=== PATIENT | male | born 1940 | race Caucasian/White ===

== ENCOUNTER 2021-12-24 12:18 | Inpatient (IN) | payer MEDICARE ==
[2021-12-24] MEDS ORDERED: Ondansetron ODT 4 MG TAB PO PRN (17:59)
[2021-12-24] MEDS ORDERED: Ampicillin 2 GM VIAL IVPB SCH (18:00)
[2021-12-24] MEDS ORDERED: Dextrose 50% Abboject 50 ML SYRINGE SLOW IVP PRN (18:03)
[2021-12-24] MEDS ORDERED: Acetaminophen 325 MG TAB PO PRN (18:04)
[2021-12-24] MEDS: HumaLOG 300 UNITS/3 ML VIAL SC PRN (18:23)
[2021-12-24] MEDS: Famotidine 20 MG TAB PO SCH (20:14)
[2021-12-24] MEDS: Apixaban 5 MG TAB PO SCH (20:14)
[2021-12-24] MEDS: Sodium Bicarbonate Tab 325 MG TAB PO SCH (20:14)
[2021-12-24] MEDS: cefTRIAXone\\ROCEPHIN 2 GM in Sodium Chloride 0.9% 100 ML IVPB SCH (20:14)
[2021-12-24] MEDS: Atorvastatin Calcium 20 MG TAB PO SCH (20:14)
[2021-12-24] MEDS: Lantus 1000 UNITS/10 ML VIAL SC SCH (20:15)
[2021-12-24] MEDS: Ampicillin 2 GM in Sodium Chloride 0.9% 100 ML IVPB SCH (20:25)
[2021-12-24] MEDS ORDERED: cefTRIAXone\\ROCEPHIN 2 GM VIAL IVPB SCH (21:00)
[2021-12-25] MEDS: Ampicillin 2 GM in Sodium Chloride 0.9% 100 ML IVPB SCH ×6 (00:22→23:57)
[2021-12-25 06:31] LABS: #Basophils 0.1 thou/uL (0.0-0.2); #Eosinphils 0.1 thou/uL (0.0-0.7); #Monocytes 0.6 thou/uL (0.11-0.59); %Basophils 1.4 % (0.0-1.0); %Eosinophils 1.4 % (0.0-10.0); %Lymphocytes 16.9 % (21.0-51.0); %Monocytes 9.9 % (0.0-10.0); %Neutrophils 70.4 % (42.0-75.0); ALT (SGPT) 12 U/L (8-55); AST (SGOT) 17 U/L (5-34); Albumin 2.9 g/dL (3.4-4.8); Alkaline Phosphatase 66 U/L (40-110); Anion Gap 14 mmol/L (10-20); BUN (Urea Nitrogen) 18 mg/dL (8.4-25.7); Bilirubin, Total 0.3 mg/dL (0.2-1.2); Calc. Creatinine Clearance 52 mL/min (70-130); Calcium 8.1 mg/dL (7.8-10.44); Carbon Dioxide 24 mmol/L (23-31); Chloride 106 mmol/L (98-107); Estimated GFR 53; Glucose 96 mg/dL (83-110); Hemoglobin 7.8 g/dL (14.0-18.0); Mean Corpuscular HGB CONC 31.6 g/dL (32.0-36.0); Mean Corpuscular Hemoglobin 28.9 pg (27.0-31.0); Mean Corpuscular Volume 91.5 fl (78.0-98.0); Mean Platelet Volume 6.3 fL (7.4-10.4); Platelet Count 239 thou/uL (130-400); Potassium 3.9 mmol/L (3.5-5.1); Protein, Total 5.9 g/dL (5.8-8.1); RBC Distribution Width 15.6 % (11.5-14.5); Sodium 140 mmol/L (136-145); White Blood Cell (WBC) Count 5.6 thou/uL (4.8-10.8)
[2021-12-25] MEDS: Lantus 1000 UNITS/10 ML VIAL SC SCH ×2 (07:38→20:32)
[2021-12-25] MEDS: Sodium Bicarbonate Tab 325 MG TAB PO SCH ×2 (07:40→20:29)
[2021-12-25] MEDS: Famotidine 20 MG TAB PO SCH ×2 (07:41→20:29)
[2021-12-25] MEDS: Ferrous Sulfate 325 MG TAB PO SCH (07:41)
[2021-12-25] MEDS: Apixaban 5 MG TAB PO SCH ×2 (07:41→20:29)
[2021-12-25] MEDS: Multivitamin W/ Minerals 1 TAB PO SCH (07:41)
[2021-12-25] MEDS: cefTRIAXone\\ROCEPHIN 2 GM in Sodium Chloride 0.9% 100 ML IVPB SCH ×2 (08:26→20:29)
[2021-12-25] MEDS: HumaLOG 300 UNITS/3 ML VIAL SC PRN ×2 (11:45→17:15)
[2021-12-25] MEDS ORDERED: FLU VACC QS2022-23(65YR UP)/PF 240 MCG/0.7 ML SYRINGE IM ONE (17:15)
[2021-12-25] MEDS: Senokot S 8.6-50 MG TAB PO PRN (20:29)
[2021-12-25] MEDS: Atorvastatin Calcium 20 MG TAB PO SCH (20:29)
[2021-12-26] MEDS: Ampicillin 2 GM in Sodium Chloride 0.9% 100 ML IVPB SCH ×3 (05:31→17:37)
[2021-12-26] MEDS: Lantus 1000 UNITS/10 ML VIAL SC SCH ×2 (07:45→20:41)
[2021-12-26] MEDS: Famotidine 20 MG TAB PO SCH ×2 (07:47→20:19)
[2021-12-26] MEDS: Multivitamin W/ Minerals 1 TAB PO SCH (07:47)
[2021-12-26] MEDS: Ferrous Sulfate 325 MG TAB PO SCH (07:48)
[2021-12-26] MEDS: cefTRIAXone\\ROCEPHIN 2 GM in Sodium Chloride 0.9% 100 ML IVPB SCH ×2 (07:48→20:19)
[2021-12-26] MEDS: Sodium Bicarbonate Tab 325 MG TAB PO SCH ×2 (07:48→20:19)
[2021-12-26] MEDS: Apixaban 5 MG TAB PO SCH ×2 (07:48→20:19)
[2021-12-26] MEDS: HumaLOG 300 UNITS/3 ML VIAL SC PRN ×2 (11:47→17:37)
[2021-12-26] MEDS: Bisacodyl 5 MG TAB PO PRN (17:37)
[2021-12-26] MEDS: Atorvastatin Calcium 20 MG TAB PO SCH (20:19)
[2021-12-27] MEDS: Ampicillin 2 GM in Sodium Chloride 0.9% 100 ML IVPB SCH ×5 (00:06→23:42)
[2021-12-27] MEDS: Bisacodyl 5 MG TAB PO PRN (05:55)
[2021-12-27] MEDS: cefTRIAXone\\ROCEPHIN 2 GM in Sodium Chloride 0.9% 100 ML IVPB SCH ×2 (08:55→20:59)
[2021-12-27] MEDS: Multivitamin W/ Minerals 1 TAB PO SCH (08:57)
[2021-12-27] MEDS: Famotidine 20 MG TAB PO SCH ×2 (08:57→21:00)
[2021-12-27] MEDS: Ferrous Sulfate 325 MG TAB PO SCH (08:57)
[2021-12-27] MEDS: Lantus 1000 UNITS/10 ML VIAL SC SCH ×3 (08:58→21:01)
[2021-12-27] MEDS: Apixaban 5 MG TAB PO SCH ×2 (08:58→21:00)
[2021-12-27] MEDS: Sodium Bicarbonate Tab 325 MG TAB PO SCH ×2 (08:59→21:00)
[2021-12-27] MEDS: HumaLOG 300 UNITS/3 ML VIAL SC PRN ×2 (11:59→17:24)
[2021-12-27] MEDS: Atorvastatin Calcium 20 MG TAB PO SCH (21:00)
[2021-12-28 05:54] LABS: Anion Gap 13 mmol/L (10-20); BUN (Urea Nitrogen) 15 mg/dL (8.4-25.7); Calc. Creatinine Clearance 56 mL/min (70-130); Calcium 8.3 mg/dL (7.8-10.44); Carbon Dioxide 25 mmol/L (23-31); Chloride 109 mmol/L (98-107); Estimated GFR 57; Glucose 116 mg/dL (83-110); Potassium 3.9 mmol/L (3.5-5.1); Sodium 143 mmol/L (136-145)
[2021-12-28] MEDS: Ampicillin 2 GM in Sodium Chloride 0.9% 100 ML IVPB SCH ×4 (05:55→21:00)
[2021-12-28] MEDS: Famotidine 20 MG TAB PO SCH ×2 (08:38→21:01)
[2021-12-28] MEDS: Apixaban 5 MG TAB PO SCH ×2 (08:38→21:00)
[2021-12-28] MEDS: Ferrous Sulfate 325 MG TAB PO SCH (08:38)
[2021-12-28] MEDS: Multivitamin W/ Minerals 1 TAB PO SCH (08:38)
[2021-12-28] MEDS: Lantus 1000 UNITS/10 ML VIAL SC SCH ×2 (08:39→21:00)
[2021-12-28] MEDS: Sodium Bicarbonate Tab 325 MG TAB PO SCH ×2 (08:39→21:01)
[2021-12-28] MEDS: cefTRIAXone\\ROCEPHIN 2 GM in Sodium Chloride 0.9% 100 ML IVPB SCH ×2 (08:40→21:42)
[2021-12-28] MEDS: Atorvastatin Calcium 20 MG TAB PO SCH (21:00)
[2021-12-29] MEDS: Ampicillin 2 GM in Sodium Chloride 0.9% 100 ML IVPB SCH ×6 (00:48→20:53)
[2021-12-29] MEDS: Sodium Bicarbonate Tab 325 MG TAB PO SCH ×2 (08:47→20:52)
[2021-12-29] MEDS: Apixaban 5 MG TAB PO SCH ×2 (08:47→20:52)
[2021-12-29] MEDS: Multivitamin W/ Minerals 1 TAB PO SCH (08:47)
[2021-12-29] MEDS: Famotidine 20 MG TAB PO SCH ×2 (08:47→20:52)
[2021-12-29] MEDS: Ferrous Sulfate 325 MG TAB PO SCH (08:48)
[2021-12-29] MEDS: cefTRIAXone\\ROCEPHIN 2 GM in Sodium Chloride 0.9% 100 ML IVPB SCH ×2 (08:53→21:39)
[2021-12-29] MEDS: Lantus 1000 UNITS/10 ML VIAL SC SCH ×2 (08:54→20:53)
[2021-12-29] MEDS ORDERED: Semaglutide (Ozempic) 0.25 MG/0.2 ML Pen.Injctr SC SCH (09:00)
[2021-12-29] MEDS: Semaglutide (Ozempic) 0.25 MG/0.2 ML Pen.Injctr SC SCH (14:50)
[2021-12-29] MEDS: Epoetin (ESRD) 20,000 UNITS/ML IVP SCH (14:50)
[2021-12-29] MEDS: Atorvastatin Calcium 20 MG TAB PO SCH (20:52)
[2021-12-29] MEDS: HumaLOG 300 UNITS/3 ML VIAL SC PRN (20:53)
[2021-12-30] MEDS: Ampicillin 2 GM in Sodium Chloride 0.9% 100 ML IVPB SCH ×6 (01:21→21:05)
[2021-12-30 05:52] LABS: Anion Gap 11 mmol/L (10-20); BUN (Urea Nitrogen) 12 mg/dL (8.4-25.7); Calc. Creatinine Clearance 64 mL/min (70-130); Calcium 8.6 mg/dL (7.8-10.44); Carbon Dioxide 26 mmol/L (23-31); Chloride 108 mmol/L (98-107); Estimated GFR 67; Glucose 132 mg/dL (83-110); Potassium 3.7 mmol/L (3.5-5.1); Sodium 141 mmol/L (136-145)
[2021-12-30] MEDS: cefTRIAXone\\ROCEPHIN 2 GM in Sodium Chloride 0.9% 100 ML IVPB SCH ×2 (07:51→20:27)
[2021-12-30] MEDS: Sodium Bicarbonate Tab 325 MG TAB PO SCH ×2 (08:05→20:28)
[2021-12-30] MEDS: Ferrous Sulfate 325 MG TAB PO SCH (08:05)
[2021-12-30] MEDS: Famotidine 20 MG TAB PO SCH ×2 (08:05→20:28)
[2021-12-30] MEDS: Multivitamin W/ Minerals 1 TAB PO SCH (08:05)
[2021-12-30] MEDS: Apixaban 5 MG TAB PO SCH ×2 (08:06→20:28)
[2021-12-30] MEDS: Lantus 1000 UNITS/10 ML VIAL SC SCH ×2 (08:06→20:29)
[2021-12-30] MEDS: HumaLOG 300 UNITS/3 ML VIAL SC PRN ×2 (11:55→17:42)
[2021-12-30 15:15] LABS: Hemoglobin A1c 6.5 % (4.0-6.0)
[2021-12-30] MEDS: Atorvastatin Calcium 20 MG TAB PO SCH (20:28)
[2021-12-31] MEDS: Ampicillin 2 GM in Sodium Chloride 0.9% 100 ML IVPB SCH ×6 (01:06→21:51)
[2021-12-31] MEDS: cefTRIAXone\\ROCEPHIN 2 GM in Sodium Chloride 0.9% 100 ML IVPB SCH ×2 (08:07→21:13)
[2021-12-31] MEDS: Sodium Bicarbonate Tab 325 MG TAB PO SCH ×2 (08:13→21:13)
[2021-12-31] MEDS: Apixaban 5 MG TAB PO SCH ×2 (08:13→21:12)
[2021-12-31] MEDS: Lantus 1000 UNITS/10 ML VIAL SC SCH ×2 (08:14→21:13)
[2021-12-31] MEDS: Ferrous Sulfate 325 MG TAB PO SCH (08:14)
[2021-12-31] MEDS: Famotidine 20 MG TAB PO SCH ×2 (08:14→21:12)
[2021-12-31] MEDS: Multivitamin W/ Minerals 1 TAB PO SCH (08:14)
[2021-12-31] MEDS: Senokot S 8.6-50 MG TAB PO PRN (16:38)
[2021-12-31] MEDS: HumaLOG 300 UNITS/3 ML VIAL SC PRN (16:41)
[2021-12-31] MEDS: Atorvastatin Calcium 20 MG TAB PO SCH (21:13)
[2022-01-01] MEDS: Ampicillin 2 GM in Sodium Chloride 0.9% 100 ML IVPB SCH ×6 (00:47→20:37)
[2022-01-01] MEDS: Multivitamin W/ Minerals 1 TAB PO SCH (07:56)
[2022-01-01] MEDS: Ferrous Sulfate 325 MG TAB PO SCH (07:56)
[2022-01-01] MEDS: Sodium Bicarbonate Tab 325 MG TAB PO SCH ×2 (07:56→20:34)
[2022-01-01] MEDS: Apixaban 5 MG TAB PO SCH ×2 (07:56→20:37)
[2022-01-01] MEDS: Famotidine 20 MG TAB PO SCH ×2 (07:56→20:35)
[2022-01-01] MEDS: Lantus 1000 UNITS/10 ML VIAL SC SCH ×2 (07:57→20:38)
[2022-01-01] MEDS: cefTRIAXone\\ROCEPHIN 2 GM in Sodium Chloride 0.9% 100 ML IVPB SCH ×2 (08:45→21:21)
[2022-01-01 09:17] LABS: #Basophils 0.1 thou/uL (0.0-0.2); #Eosinphils 0.1 thou/uL (0.0-0.7); #Lymphocytes 0.7 thou/uL (1.20-3.40); #Monocytes 0.4 thou/uL (0.11-0.59); #Neutrophils 3.1 thou/uL (1.40-6.50); %Basophils 1.5 % (0.0-1.0); %Eosinophils 1.2 % (0.0-10.0); %Lymphocytes 16.9 % (21.0-51.0); %Neutrophils 71.4 % (42.0-75.0); Hemoglobin 8.2 g/dL (14.0-18.0); Mean Corpuscular HGB CONC 30.2 g/dL (32.0-36.0); Mean Corpuscular Hemoglobin 28.6 pg (27.0-31.0); Mean Corpuscular Volume 94.8 fl (78.0-98.0); Mean Platelet Volume 5.9 fL (7.4-10.4); Platelet Count 202 thou/uL (130-400); RBC Distribution Width 17.6 % (11.5-14.5); Red Blood Cell (RBC) Count 2.85 mill/uL (4.70-6.10); White Blood Cell (WBC) Count 4.4 thou/uL (4.8-10.8)
[2022-01-01 09:27] LABS: Albumin 3.1 g/dL (3.4-4.8); Anion Gap 14 mmol/L (10-20); BUN (Urea Nitrogen) 11 mg/dL (8.4-25.7); Bilirubin, Total 0.3 mg/dL (0.2-1.2); Calc. Creatinine Clearance 55 mL/min (70-130); Calcium 8.4 mg/dL (7.8-10.44); Carbon Dioxide 23 mmol/L (23-31); Chloride 107 mmol/L (98-107); Estimated GFR 55; Glucose 145 mg/dL (83-110); Potassium 4.1 mmol/L (3.5-5.1); Protein, Total 6.4 g/dL (5.8-8.1); Sodium 140 mmol/L (136-145)
[2022-01-01 09:28] LABS: ALT (SGPT) 8 U/L (8-55); AST (SGOT) 13 U/L (5-34); Alkaline Phosphatase 74 U/L (40-110); CRP (Inflammatory) 1.52 mg/dL (= or < 0.5); Globulin 3.3 g/dL (2.4-3.5)
[2022-01-01] MEDS: Atorvastatin Calcium 20 MG TAB PO SCH (20:36)
[2022-01-01] MEDS: Senokot S 8.6-50 MG TAB PO PRN (20:36)
[2022-01-02] MEDS: Ampicillin 2 GM in Sodium Chloride 0.9% 100 ML IVPB SCH ×6 (00:28→20:26)
[2022-01-02] MEDS: Sodium Bicarbonate Tab 325 MG TAB PO SCH ×2 (08:52→20:25)
[2022-01-02] MEDS: Multivitamin W/ Minerals 1 TAB PO SCH (08:52)
[2022-01-02] MEDS: Apixaban 5 MG TAB PO SCH ×2 (08:52→20:26)
[2022-01-02] MEDS: Famotidine 20 MG TAB PO SCH ×2 (08:52→20:26)
[2022-01-02] MEDS: Senokot S 8.6-50 MG TAB PO PRN (08:53)
[2022-01-02] MEDS: Lantus 1000 UNITS/10 ML VIAL SC SCH (08:56)
[2022-01-02] MEDS: Ferrous Sulfate 325 MG TAB PO SCH (08:58)
[2022-01-02] MEDS: cefTRIAXone\\ROCEPHIN 2 GM in Sodium Chloride 0.9% 100 ML IVPB SCH ×2 (09:31→20:52)
[2022-01-02] MEDS: HumaLOG 300 UNITS/3 ML VIAL SC PRN (17:01)
[2022-01-02] MEDS: Atorvastatin Calcium 20 MG TAB PO SCH (20:25)
[2022-01-03] MEDS: Ampicillin 2 GM in Sodium Chloride 0.9% 100 ML IVPB SCH ×6 (00:28→20:18)
[2022-01-03] MEDS: Ferrous Sulfate 325 MG TAB PO SCH (08:25)
[2022-01-03] MEDS: Multivitamin W/ Minerals 1 TAB PO SCH (08:25)
[2022-01-03] MEDS: Apixaban 5 MG TAB PO SCH ×2 (08:25→20:19)
[2022-01-03] MEDS: Famotidine 20 MG TAB PO SCH ×2 (08:26→20:19)
[2022-01-03] MEDS: Sodium Bicarbonate Tab 325 MG TAB PO SCH ×2 (08:26→20:19)
[2022-01-03] MEDS: Lantus 1000 UNITS/10 ML VIAL SC SCH (08:29)
[2022-01-03] MEDS: cefTRIAXone\\ROCEPHIN 2 GM in Sodium Chloride 0.9% 100 ML IVPB SCH ×2 (09:01→20:19)
[2022-01-03] MEDS: Atorvastatin Calcium 20 MG TAB PO SCH (20:19)
[2022-01-04] MEDS: Ampicillin 2 GM in Sodium Chloride 0.9% 100 ML IVPB SCH ×6 (01:26→20:15)
[2022-01-04] MEDS: Ferrous Sulfate 325 MG TAB PO SCH (08:41)
[2022-01-04] MEDS: Sodium Bicarbonate Tab 325 MG TAB PO SCH ×2 (08:42→20:12)
[2022-01-04] MEDS: Apixaban 5 MG TAB PO SCH ×2 (08:42→20:12)
[2022-01-04] MEDS: Famotidine 20 MG TAB PO SCH ×2 (08:42→20:13)
[2022-01-04] MEDS: Multivitamin W/ Minerals 1 TAB PO SCH (08:42)
[2022-01-04] MEDS: Lantus 1000 UNITS/10 ML VIAL SC SCH (09:06)
[2022-01-04] MEDS: cefTRIAXone\\ROCEPHIN 2 GM in Sodium Chloride 0.9% 100 ML IVPB SCH ×2 (09:19→20:15)
[2022-01-04] MEDS: Atorvastatin Calcium 20 MG TAB PO SCH (20:12)
[2022-01-05] MEDS: Ampicillin 2 GM in Sodium Chloride 0.9% 100 ML IVPB SCH ×6 (01:31→20:23)
[2022-01-05] MEDS: Ferrous Sulfate 325 MG TAB PO SCH (08:25)
[2022-01-05] MEDS: Multivitamin W/ Minerals 1 TAB PO SCH (08:26)
[2022-01-05] MEDS: Sodium Bicarbonate Tab 325 MG TAB PO SCH ×2 (08:26→20:23)
[2022-01-05] MEDS: Famotidine 20 MG TAB PO SCH ×2 (08:26→20:23)
[2022-01-05] MEDS: Apixaban 5 MG TAB PO SCH ×2 (08:27→20:23)
[2022-01-05] MEDS: Lantus 1000 UNITS/10 ML VIAL SC SCH (08:28)
[2022-01-05] MEDS: cefTRIAXone\\ROCEPHIN 2 GM in Sodium Chloride 0.9% 100 ML IVPB SCH ×2 (09:21→20:23)
[2022-01-05] MEDS: Semaglutide (Ozempic) 0.25 MG/0.2 ML Pen.Injctr SC SCH (10:00)
[2022-01-05] MEDS: Epoetin (ESRD) 20,000 UNITS/ML IVP SCH (15:58)
[2022-01-05] MEDS: HumaLOG 300 UNITS/3 ML VIAL SC PRN ×2 (16:56→21:07)
[2022-01-05] MEDS: Atorvastatin Calcium 20 MG TAB PO SCH (20:23)
[2022-01-06] MEDS: Ampicillin 2 GM in Sodium Chloride 0.9% 100 ML IVPB SCH ×6 (01:54→20:18)
[2022-01-06 06:48] LABS: #Basophils 0.1 thou/uL (0.0-0.2); #Eosinphils 0.1 thou/uL (0.0-0.7); #Lymphocytes 0.8 thou/uL (1.20-3.40); #Monocytes 0.4 thou/uL (0.11-0.59); #Neutrophils 2.1 thou/uL (1.40-6.50); %Basophils 2.1 % (0.0-1.0); %Eosinophils 2.9 % (0.0-10.0); %Lymphocytes 23.6 % (21.0-51.0); %Monocytes 12.7 % (0.0-10.0); %Neutrophils 58.7 % (42.0-75.0); Hemoglobin 8.6 g/dL (14.0-18.0); Mean Corpuscular HGB CONC 31.9 g/dL (32.0-36.0); Mean Corpuscular Hemoglobin 29.8 pg (27.0-31.0); Mean Corpuscular Volume 93.5 fl (78.0-98.0); Mean Platelet Volume 5.4 fL (7.4-10.4); Platelet Count 216 10x3/uL (130-400); RBC Distribution Width 17.3 % (11.5-14.5); Red Blood Cell (RBC) Count 2.89 mill/uL (4.70-6.10); White Blood Cell (WBC) Count 3.5 10x3/uL (4.8-10.8)
[2022-01-06 07:03] LABS: Anion Gap 12 mmol/L (10-20); BUN (Urea Nitrogen) 12 mg/dL (8.4-25.7); Calc. Creatinine Clearance 53 mL/min (70-130); Calcium 8.4 mg/dL (7.8-10.44); Carbon Dioxide 24 mmol/L (23-31); Chloride 109 mmol/L (98-107); Estimated GFR 53; Glucose 122 mg/dL (83-110); Potassium 3.6 mmol/L (3.5-5.1); Sodium 141 mmol/L (136-145)
[2022-01-06] MEDS: cefTRIAXone\\ROCEPHIN 2 GM in Sodium Chloride 0.9% 100 ML IVPB SCH ×2 (07:48→20:18)
[2022-01-06] MEDS: Apixaban 5 MG TAB PO SCH ×2 (08:03→20:17)
[2022-01-06] MEDS: Famotidine 20 MG TAB PO SCH ×2 (08:04→20:17)
[2022-01-06] MEDS: Ferrous Sulfate 325 MG TAB PO SCH (08:04)
[2022-01-06] MEDS: Sodium Bicarbonate Tab 325 MG TAB PO SCH ×2 (08:04→20:17)
[2022-01-06] MEDS: Multivitamin W/ Minerals 1 TAB PO SCH (08:04)
[2022-01-06] MEDS: Empagliflozin 10 MG TAB PO SCH (08:04)
[2022-01-06] MEDS: Lantus 1000 UNITS/10 ML VIAL SC SCH (08:06)
[2022-01-06] MEDS: HumaLOG 300 UNITS/3 ML VIAL SC PRN (11:37)
[2022-01-06] MEDS: Atorvastatin Calcium 20 MG TAB PO SCH (20:17)
[2022-01-07] MEDS: Ampicillin 2 GM in Sodium Chloride 0.9% 100 ML IVPB SCH ×6 (01:49→20:55)
[2022-01-07] MEDS: cefTRIAXone\\ROCEPHIN 2 GM in Sodium Chloride 0.9% 100 ML IVPB SCH ×2 (07:50→20:55)
[2022-01-07] MEDS: Lantus 1000 UNITS/10 ML VIAL SC SCH (07:58)
[2022-01-07] MEDS: Empagliflozin 10 MG TAB PO SCH (08:01)
[2022-01-07] MEDS: Sodium Bicarbonate Tab 325 MG TAB PO SCH ×2 (08:01→20:54)
[2022-01-07] MEDS: Famotidine 20 MG TAB PO SCH ×2 (08:01→20:55)
[2022-01-07] MEDS: Ferrous Sulfate 325 MG TAB PO SCH (08:01)
[2022-01-07] MEDS: Multivitamin W/ Minerals 1 TAB PO SCH (08:01)
[2022-01-07] MEDS: Apixaban 5 MG TAB PO SCH ×2 (08:02→20:55)
[2022-01-07] MEDS: HumaLOG 300 UNITS/3 ML VIAL SC PRN ×2 (11:32→20:53)
[2022-01-07] MEDS: Atorvastatin Calcium 20 MG TAB PO SCH (20:55)
[2022-01-08] MEDS: Ampicillin 2 GM in Sodium Chloride 0.9% 100 ML IVPB SCH ×6 (01:04→20:47)
[2022-01-08 06:03] LABS: ALT (SGPT) 7 U/L (8-55); AST (SGOT) 13 U/L (5-34); Albumin 3.2 g/dL (3.4-4.8); Alkaline Phosphatase 77 U/L (40-110); Anion Gap 13 mmol/L (10-20); BUN (Urea Nitrogen) 14 mg/dL (8.4-25.7); Bilirubin, Total 0.3 mg/dL (0.2-1.2); Calc. Creatinine Clearance 54 mL/min (70-130); Calcium 8.5 mg/dL (7.8-10.44); Carbon Dioxide 24 mmol/L (23-31); Chloride 109 mmol/L (98-107); Estimated GFR 54; Globulin 2.8 g/dL (2.4-3.5); Potassium 3.6 mmol/L (3.5-5.1)
[2022-01-08 06:37] LABS: #Basophils 0.1 thou/uL (0.0-0.2); #Eosinphils 0.1 thou/uL (0.0-0.7); #Lymphocytes 0.7 thou/uL (1.20-3.40); #Monocytes 0.4 thou/uL (0.11-0.59); #Neutrophils 3.6 thou/uL (1.40-6.50); %Basophils 1.9 % (0.0-1.0); %Lymphocytes 14.3 % (21.0-51.0); %Monocytes 7.4 % (0.0-10.0); %Neutrophils 74.4 % (42.0-75.0); Hemoglobin 8.5 g/dL (14.0-18.0); Mean Corpuscular HGB CONC 30.9 g/dL (32.0-36.0); Mean Corpuscular Hemoglobin 29.4 pg (27.0-31.0); Mean Platelet Volume 5.9 fL (7.4-10.4); Platelet Count 210 10x3/uL (130-400); RBC Distribution Width 17.6 % (11.5-14.5); White Blood Cell (WBC) Count 4.9 10x3/uL (4.8-10.8)
[2022-01-08 06:50] LABS: Glucose 110 mg/dL (83-110); Sodium 142 mmol/L (136-145)
[2022-01-08 07:05] LABS: CRP (Inflammatory) 1.25 mg/dL (= or < 0.5)
[2022-01-08] MEDS: Senokot S 8.6-50 MG TAB PO PRN ×2 (07:43→16:52)
[2022-01-08] MEDS: Ferrous Sulfate 325 MG TAB PO SCH (07:43)
[2022-01-08] MEDS: Famotidine 20 MG TAB PO SCH ×2 (07:44→20:09)
[2022-01-08] MEDS: Empagliflozin 10 MG TAB PO SCH (07:44)
[2022-01-08] MEDS: Lantus 1000 UNITS/10 ML VIAL SC SCH (07:44)
[2022-01-08] MEDS: Apixaban 5 MG TAB PO SCH ×2 (07:44→20:09)
[2022-01-08] MEDS: Multivitamin W/ Minerals 1 TAB PO SCH (07:44)
[2022-01-08] MEDS: Sodium Bicarbonate Tab 325 MG TAB PO SCH ×2 (07:44→20:09)
[2022-01-08] MEDS: Losartan 25 MG TAB PO SCH (07:44)
[2022-01-08] MEDS: cefTRIAXone\\ROCEPHIN 2 GM in Sodium Chloride 0.9% 100 ML IVPB SCH ×2 (08:33→20:07)
[2022-01-08] MEDS: Atorvastatin Calcium 20 MG TAB PO SCH (20:09)
[2022-01-08] MEDS: HumaLOG 300 UNITS/3 ML VIAL SC PRN (20:16)
[2022-01-09] MEDS: Ampicillin 2 GM in Sodium Chloride 0.9% 100 ML IVPB SCH ×6 (00:51→21:39)
[2022-01-09] MEDS: Sodium Bicarbonate Tab 325 MG TAB PO SCH ×2 (07:56→20:06)
[2022-01-09] MEDS: Losartan 25 MG TAB PO SCH (07:57)
[2022-01-09] MEDS: Famotidine 20 MG TAB PO SCH ×2 (07:57→20:06)
[2022-01-09] MEDS: Multivitamin W/ Minerals 1 TAB PO SCH (07:57)
[2022-01-09] MEDS: Empagliflozin 10 MG TAB PO SCH (07:58)
[2022-01-09] MEDS: Lantus 1000 UNITS/10 ML VIAL SC SCH (07:58)
[2022-01-09] MEDS: Ferrous Sulfate 325 MG TAB PO SCH (07:58)
[2022-01-09] MEDS: Apixaban 5 MG TAB PO SCH ×2 (07:58→20:06)
[2022-01-09] MEDS: Senokot S 8.6-50 MG TAB PO PRN ×2 (08:02→17:57)
[2022-01-09] MEDS: cefTRIAXone\\ROCEPHIN 2 GM in Sodium Chloride 0.9% 100 ML IVPB SCH ×2 (08:47→20:05)
[2022-01-09] MEDS: HumaLOG 300 UNITS/3 ML VIAL SC PRN ×3 (11:38→20:23)
[2022-01-09] MEDS: Atorvastatin Calcium 20 MG TAB PO SCH (20:06)
[2022-01-10] MEDS: Ampicillin 2 GM in Sodium Chloride 0.9% 100 ML IVPB SCH ×6 (01:23→21:47)
[2022-01-10] MEDS: cefTRIAXone\\ROCEPHIN 2 GM in Sodium Chloride 0.9% 100 ML IVPB SCH ×2 (08:04→21:16)
[2022-01-10] MEDS: Ferrous Sulfate 325 MG TAB PO SCH (08:05)
[2022-01-10] MEDS: Senokot S 8.6-50 MG TAB PO PRN (08:50)
[2022-01-10] MEDS: Losartan 25 MG TAB PO SCH (08:59)
[2022-01-10] MEDS: Multivitamin W/ Minerals 1 TAB PO SCH (08:59)
[2022-01-10] MEDS: Famotidine 20 MG TAB PO SCH ×2 (09:00→21:17)
[2022-01-10] MEDS: Apixaban 5 MG TAB PO SCH ×2 (09:00→21:17)
[2022-01-10] MEDS: Lantus 1000 UNITS/10 ML VIAL SC SCH (09:00)
[2022-01-10] MEDS: Sodium Bicarbonate Tab 325 MG TAB PO SCH ×2 (09:10→21:16)
[2022-01-10] MEDS ORDERED: Empagliflozin 10 MG TAB PO SCH (12:45)
[2022-01-10] MEDS: Empagliflozin 10 MG TAB PO SCH (13:05)
[2022-01-10] MEDS: HumaLOG 300 UNITS/3 ML VIAL SC PRN (17:15)
[2022-01-10] MEDS: Atorvastatin Calcium 20 MG TAB PO SCH (21:17)
[2022-01-11] MEDS: Ampicillin 2 GM in Sodium Chloride 0.9% 100 ML IVPB SCH ×6 (00:54→20:43)
[2022-01-11] MEDS: cefTRIAXone\\ROCEPHIN 2 GM in Sodium Chloride 0.9% 100 ML IVPB SCH ×2 (08:08→20:43)
[2022-01-11] MEDS: Sodium Bicarbonate Tab 325 MG TAB PO SCH ×2 (08:14→20:42)
[2022-01-11] MEDS: Multivitamin W/ Minerals 1 TAB PO SCH (08:14)
[2022-01-11] MEDS: Ferrous Sulfate 325 MG TAB PO SCH (08:14)
[2022-01-11] MEDS: Famotidine 20 MG TAB PO SCH ×2 (08:14→20:42)
[2022-01-11] MEDS: Apixaban 5 MG TAB PO SCH ×2 (08:15→20:42)
[2022-01-11] MEDS: Empagliflozin 10 MG TAB PO SCH (08:15)
[2022-01-11] MEDS: Losartan 25 MG TAB PO SCH (08:15)
[2022-01-11] MEDS: Lantus 1000 UNITS/10 ML VIAL SC SCH (08:16)
[2022-01-11] MEDS: HumaLOG 300 UNITS/3 ML VIAL SC PRN ×2 (11:38→16:59)
[2022-01-11] MEDS: Atorvastatin Calcium 20 MG TAB PO SCH (20:42)
[2022-01-12] MEDS: Ampicillin 2 GM in Sodium Chloride 0.9% 100 ML IVPB SCH ×6 (00:28→21:13)
[2022-01-12] MEDS: Famotidine 20 MG TAB PO SCH ×2 (08:14→20:30)
[2022-01-12] MEDS: Ferrous Sulfate 325 MG TAB PO SCH (08:14)
[2022-01-12] MEDS: Sodium Bicarbonate Tab 325 MG TAB PO SCH ×2 (08:14→20:41)
[2022-01-12] MEDS: Apixaban 5 MG TAB PO SCH ×2 (08:14→20:29)
[2022-01-12] MEDS: Losartan 25 MG TAB PO SCH (08:14)
[2022-01-12] MEDS: Multivitamin W/ Minerals 1 TAB PO SCH (08:14)
[2022-01-12] MEDS: Empagliflozin 10 MG TAB PO SCH (08:15)
[2022-01-12] MEDS: Semaglutide (Ozempic) 0.25 MG/0.2 ML Pen.Injctr SC SCH (08:19)
[2022-01-12] MEDS: Senokot S 8.6-50 MG TAB PO PRN ×2 (08:19→20:30)
[2022-01-12] MEDS: Lantus 1000 UNITS/10 ML VIAL SC SCH (08:38)
[2022-01-12] MEDS: cefTRIAXone\\ROCEPHIN 2 GM in Sodium Chloride 0.9% 100 ML IVPB SCH ×2 (09:00→20:30)
[2022-01-12] MEDS: HumaLOG 300 UNITS/3 ML VIAL SC PRN ×2 (10:47→19:25)
[2022-01-12] MEDS: Epoetin (ESRD) 20,000 UNITS/ML IVP SCH (15:23)
[2022-01-12] MEDS: Atorvastatin Calcium 20 MG TAB PO SCH (20:29)
[2022-01-13] MEDS: Ampicillin 2 GM in Sodium Chloride 0.9% 100 ML IVPB SCH ×6 (01:15→21:00)
[2022-01-13] MEDS: Multivitamin W/ Minerals 1 TAB PO SCH (08:10)
[2022-01-13] MEDS: Losartan 25 MG TAB PO SCH (08:10)
[2022-01-13] MEDS: Empagliflozin 10 MG TAB PO SCH (08:10)
[2022-01-13] MEDS: Sodium Bicarbonate Tab 325 MG TAB PO SCH ×2 (08:10→20:17)
[2022-01-13] MEDS: Famotidine 20 MG TAB PO SCH ×2 (08:10→20:16)
[2022-01-13] MEDS: Apixaban 5 MG TAB PO SCH ×2 (08:10→20:16)
[2022-01-13] MEDS: Ferrous Sulfate 325 MG TAB PO SCH (08:10)
[2022-01-13] MEDS: Lantus 1000 UNITS/10 ML VIAL SC SCH (08:11)
[2022-01-13] MEDS: cefTRIAXone\\ROCEPHIN 2 GM in Sodium Chloride 0.9% 100 ML IVPB SCH ×2 (08:46→20:16)
[2022-01-13] MEDS: Atorvastatin Calcium 20 MG TAB PO SCH (20:16)
[2022-01-13] MEDS: Senokot S 8.6-50 MG TAB PO PRN (20:19)
[2022-01-14] MEDS: Ampicillin 2 GM in Sodium Chloride 0.9% 100 ML IVPB SCH ×6 (01:07→21:34)
[2022-01-14] MEDS: Losartan 25 MG TAB PO SCH (07:54)
[2022-01-14] MEDS: Senokot S 8.6-50 MG TAB PO PRN ×2 (07:55→21:04)
[2022-01-14] MEDS: Sodium Bicarbonate Tab 325 MG TAB PO SCH ×2 (07:55→20:43)
[2022-01-14] MEDS: Empagliflozin 10 MG TAB PO SCH (07:55)
[2022-01-14] MEDS: Multivitamin W/ Minerals 1 TAB PO SCH (07:55)
[2022-01-14] MEDS: Ferrous Sulfate 325 MG TAB PO SCH (07:55)
[2022-01-14] MEDS: Famotidine 20 MG TAB PO SCH ×2 (07:55→20:43)
[2022-01-14] MEDS: Apixaban 5 MG TAB PO SCH ×2 (07:56→20:43)
[2022-01-14] MEDS: Lantus 1000 UNITS/10 ML VIAL SC SCH (07:57)
[2022-01-14] MEDS: cefTRIAXone\\ROCEPHIN 2 GM in Sodium Chloride 0.9% 100 ML IVPB SCH ×2 (08:39→20:43)
[2022-01-14] MEDS: HumaLOG 300 UNITS/3 ML VIAL SC PRN (17:21)
[2022-01-14] MEDS ORDERED: Polyethylene Glycol 3350 17 GM Packet PO PRN (18:37)
[2022-01-14] MEDS: Atorvastatin Calcium 20 MG TAB PO SCH (20:43)
[2022-01-15] MEDS: Ampicillin 2 GM in Sodium Chloride 0.9% 100 ML IVPB SCH ×6 (01:12→20:53)
[2022-01-15 06:00] LABS: #Basophils 0.1 thou/uL (0.0-0.2); #Eosinphils 0.1 thou/uL (0.0-0.7); #Monocytes 0.5 thou/uL (0.11-0.59); #Neutrophils 2.1 thou/uL (1.40-6.50); %Basophils 2.4 % (0.0-1.0); %Eosinophils 3.6 % (0.0-10.0); %Lymphocytes 26.1 % (21.0-51.0); %Monocytes 13.5 % (0.0-10.0); %Neutrophils 54.5 % (42.0-75.0); Hemoglobin 8.3 g/dL (14.0-18.0); Mean Corpuscular HGB CONC 30.5 g/dL (32.0-36.0); Mean Corpuscular Hemoglobin 29.5 pg (27.0-31.0); Mean Corpuscular Volume 96.6 fl (78.0-98.0); Mean Platelet Volume 6.3 fL (7.4-10.4); Platelet Count 199 10x3/uL (130-400); RBC Distribution Width 18.2 % (11.5-14.5); Red Blood Cell (RBC) Count 2.83 mill/uL (4.70-6.10); White Blood Cell (WBC) Count 3.8 10x3/uL (4.8-10.8)
[2022-01-15 06:16] LABS: ALT (SGPT) 6 U/L (8-55); AST (SGOT) 13 U/L (5-34); Albumin 3.3 g/dL (3.4-4.8); Alkaline Phosphatase 71 U/L (40-110); Anion Gap 14 mmol/L (10-20); BUN (Urea Nitrogen) 23 mg/dL (8.4-25.7); Bilirubin, Total 0.3 mg/dL (0.2-1.2); Calc. Creatinine Clearance 47 mL/min (70-130); Calcium 8.5 mg/dL (7.8-10.44); Carbon Dioxide 23 mmol/L (23-31); Chloride 111 mmol/L (98-107); Estimated GFR 47; Globulin 2.5 g/dL (2.4-3.5); Glucose 98 mg/dL (83-110); Potassium 3.6 mmol/L (3.5-5.1); Protein, Total 5.8 g/dL (5.8-8.1); Sodium 144 mmol/L (136-145)
[2022-01-15] MEDS: Lantus 1000 UNITS/10 ML VIAL SC SCH (08:36)
[2022-01-15] MEDS: Apixaban 5 MG TAB PO SCH ×2 (08:37→20:54)
[2022-01-15] MEDS: Sodium Bicarbonate Tab 325 MG TAB PO SCH ×2 (08:37→20:54)
[2022-01-15] MEDS: Multivitamin W/ Minerals 1 TAB PO SCH (08:37)
[2022-01-15] MEDS: Famotidine 20 MG TAB PO SCH (08:37)
[2022-01-15] MEDS: Losartan 25 MG TAB PO SCH (08:37)
[2022-01-15] MEDS: Ferrous Sulfate 325 MG TAB PO SCH (08:37)
[2022-01-15] MEDS: Empagliflozin 10 MG TAB PO SCH (08:37)
[2022-01-15] MEDS ORDERED: Sodium Chloride 0.9% 1,000 ML IV SCH (09:15)
[2022-01-15] MEDS: cefTRIAXone\\ROCEPHIN 2 GM in Sodium Chloride 0.9% 100 ML IVPB SCH ×2 (09:15→20:55)
[2022-01-15] MEDS: HumaLOG 300 UNITS/3 ML VIAL SC PRN (16:32)
[2022-01-15] MEDS: Atorvastatin Calcium 20 MG TAB PO SCH (20:54)
[2022-01-15] MEDS: Senokot S 8.6-50 MG TAB PO PRN (20:59)
[2022-01-16] MEDS: Ampicillin 2 GM in Sodium Chloride 0.9% 100 ML IVPB SCH ×6 (01:00→21:55)
[2022-01-16] MEDS: Lantus 1000 UNITS/10 ML VIAL SC SCH (08:30)
[2022-01-16] MEDS: Sodium Bicarbonate Tab 325 MG TAB PO SCH ×2 (08:33→20:44)
[2022-01-16] MEDS: Multivitamin W/ Minerals 1 TAB PO SCH (08:33)
[2022-01-16] MEDS: Apixaban 5 MG TAB PO SCH ×2 (08:33→20:43)
[2022-01-16] MEDS: Famotidine 20 MG TAB PO SCH (08:34)
[2022-01-16] MEDS: Ferrous Sulfate 325 MG TAB PO SCH (08:34)
[2022-01-16] MEDS: Losartan 25 MG TAB PO SCH (08:34)
[2022-01-16] MEDS: Empagliflozin 10 MG TAB PO SCH (08:34)
[2022-01-16] MEDS: cefTRIAXone\\ROCEPHIN 2 GM in Sodium Chloride 0.9% 100 ML IVPB SCH ×2 (09:07→20:43)
[2022-01-16 11:28] LABS: Anion Gap 19 mmol/L (10-20); BUN (Urea Nitrogen) 17 mg/dL (8.4-25.7); Calc. Creatinine Clearance 44 mL/min (70-130); Carbon Dioxide 19 mmol/L (23-31); Chloride 108 mmol/L (98-107); Estimated GFR 44; Glucose 151 mg/dL (83-110); Potassium 4.1 mmol/L (3.5-5.1); Sodium 142 mmol/L (136-145)
[2022-01-16] MEDS: HumaLOG 300 UNITS/3 ML VIAL SC PRN (11:53)
[2022-01-16] MEDS ORDERED: Sodium Chloride 0.9% 1,000 ML IV SCH (17:30)
[2022-01-16] MEDS: Senokot S 8.6-50 MG TAB PO PRN (20:43)
[2022-01-16] MEDS: Atorvastatin Calcium 20 MG TAB PO SCH (20:44)
[2022-01-17] MEDS: Ampicillin 2 GM in Sodium Chloride 0.9% 100 ML IVPB SCH ×6 (01:23→20:35)
[2022-01-17] MEDS: Losartan 25 MG TAB PO SCH (07:54)
[2022-01-17] MEDS: Ferrous Sulfate 325 MG TAB PO SCH (07:54)
[2022-01-17] MEDS: Multivitamin W/ Minerals 1 TAB PO SCH (07:54)
[2022-01-17] MEDS: Empagliflozin 10 MG TAB PO SCH (07:54)
[2022-01-17] MEDS: Sodium Bicarbonate Tab 325 MG TAB PO SCH ×2 (07:54→20:36)
[2022-01-17] MEDS: Famotidine 20 MG TAB PO SCH (07:55)
[2022-01-17] MEDS: Lantus 1000 UNITS/10 ML VIAL SC SCH (07:55)
[2022-01-17] MEDS: cefTRIAXone\\ROCEPHIN 2 GM in Sodium Chloride 0.9% 100 ML IVPB SCH ×2 (07:55→20:35)
[2022-01-17] MEDS: Apixaban 5 MG TAB PO SCH ×2 (07:55→20:36)
[2022-01-17] MEDS: Senokot S 8.6-50 MG TAB PO PRN ×2 (08:01→20:43)
[2022-01-17] MEDS: HumaLOG 300 UNITS/3 ML VIAL SC PRN ×2 (13:36→16:59)
[2022-01-17 15:28] LABS: Anion Gap 13 mmol/L (10-20); BUN (Urea Nitrogen) 18 mg/dL (8.4-25.7); Calc. Creatinine Clearance 44 mL/min (70-130); Calcium 8.5 mg/dL (7.8-10.44); Carbon Dioxide 24 mmol/L (23-31); Chloride 108 mmol/L (98-107); Estimated GFR 43; Glucose 180 mg/dL (83-110); Potassium 3.7 mmol/L (3.5-5.1); Sodium 141 mmol/L (136-145)
[2022-01-17] MEDS: Atorvastatin Calcium 20 MG TAB PO SCH (20:36)
[2022-01-18] MEDS: Ampicillin 2 GM in Sodium Chloride 0.9% 100 ML IVPB SCH ×6 (00:39→20:24)
[2022-01-18 05:51] LABS: Anion Gap 13 mmol/L (10-20); BUN (Urea Nitrogen) 18 mg/dL (8.4-25.7); Calc. Creatinine Clearance 53 mL/min (70-130); Calcium 8.4 mg/dL (7.8-10.44); Carbon Dioxide 21 mmol/L (23-31); Chloride 111 mmol/L (98-107); Estimated GFR 54; Glucose 108 mg/dL (83-110); Potassium 3.4 mmol/L (3.5-5.1); Sodium 142 mmol/L (136-145)
[2022-01-18] MEDS: Senokot S 8.6-50 MG TAB PO PRN ×2 (08:38→20:30)
[2022-01-18] MEDS: Sodium Bicarbonate Tab 325 MG TAB PO SCH ×2 (08:38→20:28)
[2022-01-18] MEDS: Apixaban 5 MG TAB PO SCH ×2 (08:39→20:29)
[2022-01-18] MEDS: Multivitamin W/ Minerals 1 TAB PO SCH (08:39)
[2022-01-18] MEDS: Famotidine 20 MG TAB PO SCH (08:39)
[2022-01-18] MEDS: Ferrous Sulfate 325 MG TAB PO SCH (08:39)
[2022-01-18] MEDS: Empagliflozin 10 MG TAB PO SCH (08:39)
[2022-01-18] MEDS: Losartan 25 MG TAB PO SCH (08:40)
[2022-01-18] MEDS: Lantus 1000 UNITS/10 ML VIAL SC SCH (08:40)
[2022-01-18] MEDS: cefTRIAXone\\ROCEPHIN 2 GM in Sodium Chloride 0.9% 100 ML IVPB SCH ×2 (09:21→21:18)
[2022-01-18] MEDS: Atorvastatin Calcium 20 MG TAB PO SCH (20:29)
[2022-01-18] MEDS: HumaLOG 300 UNITS/3 ML VIAL SC PRN (20:52)
[2022-01-19] MEDS: Ampicillin 2 GM in Sodium Chloride 0.9% 100 ML IVPB SCH ×6 (00:17→20:27)
[2022-01-19 08:21] LABS: Anion Gap 13 mmol/L (10-20); BUN (Urea Nitrogen) 15 mg/dL (8.4-25.7); Calc. Creatinine Clearance 54 mL/min (70-130); Calcium 8.6 mg/dL (7.8-10.44); Carbon Dioxide 22 mmol/L (23-31); Chloride 110 mmol/L (98-107); Estimated GFR 55; Glucose 102 mg/dL (83-110); Potassium 3.6 mmol/L (3.5-5.1); Sodium 141 mmol/L (136-145)
[2022-01-19] MEDS: Famotidine 20 MG TAB PO SCH (08:32)
[2022-01-19] MEDS: Empagliflozin 10 MG TAB PO SCH (08:32)
[2022-01-19] MEDS: Ferrous Sulfate 325 MG TAB PO SCH (08:32)
[2022-01-19] MEDS: Apixaban 5 MG TAB PO SCH ×2 (08:32→20:27)
[2022-01-19] MEDS: Losartan 25 MG TAB PO SCH (08:40)
[2022-01-19] MEDS: Sodium Bicarbonate Tab 325 MG TAB PO SCH ×2 (08:40→20:27)
[2022-01-19] MEDS: Multivitamin W/ Minerals 1 TAB PO SCH (08:40)
[2022-01-19] MEDS: Lantus 1000 UNITS/10 ML VIAL SC SCH (08:44)
[2022-01-19] MEDS: cefTRIAXone\\ROCEPHIN 2 GM in Sodium Chloride 0.9% 100 ML IVPB SCH ×2 (09:17→20:29)
[2022-01-19] MEDS: Semaglutide (Ozempic) 0.25 MG/0.2 ML Pen.Injctr SC SCH (10:00)
[2022-01-19] MEDS: HumaLOG 300 UNITS/3 ML VIAL SC PRN ×2 (12:20→17:17)
[2022-01-19] MEDS: Epoetin (ESRD) 20,000 UNITS/ML IVP SCH (15:07)
[2022-01-19] MEDS: Atorvastatin Calcium 20 MG TAB PO SCH (20:27)
[2022-01-20] MEDS: Ampicillin 2 GM in Sodium Chloride 0.9% 100 ML IVPB SCH ×6 (01:01→20:38)
[2022-01-20] MEDS: Senokot S 8.6-50 MG TAB PO PRN (08:03)
[2022-01-20] MEDS: Sodium Bicarbonate Tab 325 MG TAB PO SCH ×2 (08:04→20:39)
[2022-01-20] MEDS: Apixaban 5 MG TAB PO SCH ×2 (08:04→20:39)
[2022-01-20] MEDS: Losartan 25 MG TAB PO SCH (08:04)
[2022-01-20] MEDS: Ferrous Sulfate 325 MG TAB PO SCH (08:05)
[2022-01-20] MEDS: Famotidine 20 MG TAB PO SCH (08:05)
[2022-01-20] MEDS: Empagliflozin 10 MG TAB PO SCH (08:05)
[2022-01-20] MEDS: Multivitamin W/ Minerals 1 TAB PO SCH (08:05)
[2022-01-20] MEDS: Lantus 1000 UNITS/10 ML VIAL SC SCH (08:06)
[2022-01-20] MEDS: cefTRIAXone\\ROCEPHIN 2 GM in Sodium Chloride 0.9% 100 ML IVPB SCH ×2 (08:55→20:39)
[2022-01-20] MEDS: HumaLOG 300 UNITS/3 ML VIAL SC PRN ×2 (17:25→20:43)
[2022-01-20] MEDS: Atorvastatin Calcium 20 MG TAB PO SCH (20:39)
[2022-01-21] MEDS: Ampicillin 2 GM in Sodium Chloride 0.9% 100 ML IVPB SCH ×6 (01:26→20:15)
[2022-01-21] MEDS: Losartan 25 MG TAB PO SCH (08:40)
[2022-01-21] MEDS: Ferrous Sulfate 325 MG TAB PO SCH (08:41)
[2022-01-21] MEDS: Sodium Bicarbonate Tab 325 MG TAB PO SCH ×2 (08:41→20:16)
[2022-01-21] MEDS: Multivitamin W/ Minerals 1 TAB PO SCH (08:41)
[2022-01-21] MEDS: Famotidine 20 MG TAB PO SCH (08:41)
[2022-01-21] MEDS: Empagliflozin 10 MG TAB PO SCH (08:41)
[2022-01-21] MEDS: Apixaban 5 MG TAB PO SCH ×2 (08:41→20:17)
[2022-01-21] MEDS: Lantus 1000 UNITS/10 ML VIAL SC SCH (08:42)
[2022-01-21] MEDS: cefTRIAXone\\ROCEPHIN 2 GM in Sodium Chloride 0.9% 100 ML IVPB SCH ×2 (10:26→20:16)
[2022-01-21] MEDS: HumaLOG 300 UNITS/3 ML VIAL SC PRN (12:30)
[2022-01-21] MEDS: Atorvastatin Calcium 20 MG TAB PO SCH (20:16)
[2022-01-21] MEDS: Senokot S 8.6-50 MG TAB PO PRN (20:23)
[2022-01-22] MEDS: Ampicillin 2 GM in Sodium Chloride 0.9% 100 ML IVPB SCH ×6 (01:49→20:18)
[2022-01-22 05:55] LABS: #Basophils 0.1 thou/uL (0.0-0.2); #Eosinphils 0.2 thou/uL (0.0-0.7); #Monocytes 0.4 thou/uL (0.11-0.59); #Neutrophils 2.4 thou/uL (1.40-6.50); %Basophils 1.9 % (0.0-1.0); %Eosinophils 4.4 % (0.0-10.0); %Lymphocytes 23.5 % (21.0-51.0); %Monocytes 10.4 % (0.0-10.0); %Neutrophils 59.9 % (42.0-75.0); Hemoglobin 9.2 g/dL (14.0-18.0); Mean Corpuscular HGB CONC 30.3 g/dL (32.0-36.0); Mean Corpuscular Hemoglobin 29.7 pg (27.0-31.0); Mean Corpuscular Volume 98.1 fl (78.0-98.0); Mean Platelet Volume 5.6 fL (7.4-10.4); Platelet Count 211 10x3/uL (130-400); RBC Distribution Width 18.2 % (11.5-14.5)
[2022-01-22 06:07] LABS: ALT (SGPT) Less than 6 U/L (8-55); AST (SGOT) 12 U/L (5-34); Albumin 3.3 g/dL (3.4-4.8); Alkaline Phosphatase 72 U/L (40-110); Anion Gap 12 mmol/L (10-20); BUN (Urea Nitrogen) 19 mg/dL (8.4-25.7); Bilirubin, Total 0.3 mg/dL (0.2-1.2); CRP (Inflammatory) 0.96 mg/dL (= or < 0.5); Calc. Creatinine Clearance 40 mL/min (70-130); Calcium 8.8 mg/dL (7.8-10.44); Carbon Dioxide 23 mmol/L (23-31); Chloride 108 mmol/L (98-107); Estimated GFR 38; Globulin 2.6 g/dL (2.4-3.5); Glucose 102 mg/dL (83-110); Potassium 3.3 mmol/L (3.5-5.1); Protein, Total 5.9 g/dL (5.8-8.1)
[2022-01-22 06:21] LABS: Sodium 140 mmol/L (136-145)
[2022-01-22] MEDS ORDERED: Sodium Chloride 0.9% 1,000 ML IV SCH ×2 (08:00)
[2022-01-22] MEDS ORDERED: Potassium Chloride 20 MEQ TAB PO SCH (08:00)
[2022-01-22] MEDS: Empagliflozin 10 MG TAB PO SCH (08:44)
[2022-01-22] MEDS: Ferrous Sulfate 325 MG TAB PO SCH (08:44)
[2022-01-22] MEDS: Apixaban 5 MG TAB PO SCH ×2 (08:44→20:21)
[2022-01-22] MEDS: Famotidine 20 MG TAB PO SCH (08:44)
[2022-01-22] MEDS: Sodium Bicarbonate Tab 325 MG TAB PO SCH ×2 (08:45→20:21)
[2022-01-22] MEDS: Losartan 25 MG TAB PO SCH (08:45)
[2022-01-22] MEDS: Multivitamin W/ Minerals 1 TAB PO SCH (08:45)
[2022-01-22] MEDS: Lantus 1000 UNITS/10 ML VIAL SC SCH (08:46)
[2022-01-22] MEDS: Senokot S 8.6-50 MG TAB PO PRN ×2 (08:47→20:25)
[2022-01-22] MEDS: cefTRIAXone\\ROCEPHIN 2 GM in Sodium Chloride 0.9% 100 ML IVPB SCH ×2 (09:46→21:25)
[2022-01-22] MEDS: Atorvastatin Calcium 20 MG TAB PO SCH (20:21)
[2022-01-23] MEDS: Ampicillin 2 GM in Sodium Chloride 0.9% 100 ML IVPB SCH ×6 (01:15→20:30)
[2022-01-23 06:10] LABS: Anion Gap 11 mmol/L (10-20); BUN (Urea Nitrogen) 21 mg/dL (8.4-25.7); Calc. Creatinine Clearance 44 mL/min (70-130); Calcium 8.5 mg/dL (7.8-10.44); Carbon Dioxide 24 mmol/L (23-31); Chloride 111 mmol/L (98-107); Estimated GFR 42; Glucose 112 mg/dL (83-110); Potassium 3.7 mmol/L (3.5-5.1); Sodium 142 mmol/L (136-145)
[2022-01-23] MEDS: Apixaban 5 MG TAB PO SCH ×2 (08:33→20:32)
[2022-01-23] MEDS: Ferrous Sulfate 325 MG TAB PO SCH (08:33)
[2022-01-23] MEDS: Losartan 25 MG TAB PO SCH (08:33)
[2022-01-23] MEDS: Empagliflozin 10 MG TAB PO SCH (08:33)
[2022-01-23] MEDS: Multivitamin W/ Minerals 1 TAB PO SCH (08:33)
[2022-01-23] MEDS: Famotidine 20 MG TAB PO SCH (08:33)
[2022-01-23] MEDS: Sodium Bicarbonate Tab 325 MG TAB PO SCH ×2 (08:34→20:32)
[2022-01-23] MEDS: Lantus 1000 UNITS/10 ML VIAL SC SCH (08:34)
[2022-01-23] MEDS: Senokot S 8.6-50 MG TAB PO PRN ×3 (08:42→20:33)
[2022-01-23] MEDS: cefTRIAXone\\ROCEPHIN 2 GM in Sodium Chloride 0.9% 100 ML IVPB SCH ×2 (09:28→21:18)
[2022-01-23] MEDS ORDERED: Sodium Chloride 0.9% 1,000 ML IV SCH (12:15)
[2022-01-23] MEDS: HumaLOG 300 UNITS/3 ML VIAL SC PRN (16:23)
[2022-01-23] MEDS: Atorvastatin Calcium 20 MG TAB PO SCH (20:32)
[2022-01-24] MEDS: Ampicillin 2 GM in Sodium Chloride 0.9% 100 ML IVPB SCH ×6 (00:53→20:58)
[2022-01-24] MEDS: Losartan 25 MG TAB PO SCH (08:18)
[2022-01-24] MEDS: Sodium Bicarbonate Tab 325 MG TAB PO SCH ×2 (08:18→20:59)
[2022-01-24] MEDS: Senokot S 8.6-50 MG TAB PO PRN (08:19)
[2022-01-24] MEDS: Empagliflozin 10 MG TAB PO SCH (08:20)
[2022-01-24] MEDS: Multivitamin W/ Minerals 1 TAB PO SCH (08:20)
[2022-01-24] MEDS: Apixaban 5 MG TAB PO SCH ×2 (08:20→20:59)
[2022-01-24] MEDS: Famotidine 20 MG TAB PO SCH (08:20)
[2022-01-24] MEDS: Ferrous Sulfate 325 MG TAB PO SCH (08:21)
[2022-01-24] MEDS: Lantus 1000 UNITS/10 ML VIAL SC SCH (08:21)
[2022-01-24] MEDS: cefTRIAXone\\ROCEPHIN 2 GM in Sodium Chloride 0.9% 100 ML IVPB SCH ×2 (09:06→20:59)
[2022-01-24] MEDS: HumaLOG 300 UNITS/3 ML VIAL SC PRN (16:56)
[2022-01-24] MEDS ORDERED: Losartan 25 MG TAB PO SCH (19:45)
[2022-01-24] MEDS: Atorvastatin Calcium 20 MG TAB PO SCH (20:59)
[2022-01-25] MEDS: Ampicillin 2 GM in Sodium Chloride 0.9% 100 ML IVPB SCH ×6 (01:13→21:03)
[2022-01-25 06:01] LABS: Anion Gap 13 mmol/L (10-20); BUN (Urea Nitrogen) 18 mg/dL (8.4-25.7); Calc. Creatinine Clearance 45 mL/min (70-130); Calcium 8.9 mg/dL (7.8-10.44); Carbon Dioxide 25 mmol/L (23-31); Chloride 108 mmol/L (98-107); Estimated GFR 44; Glucose 99 mg/dL (83-110); Potassium 3.8 mmol/L (3.5-5.1); Sodium 142 mmol/L (136-145)
[2022-01-25] MEDS: Losartan 25 MG TAB PO SCH (07:47)
[2022-01-25] MEDS: Sodium Bicarbonate Tab 325 MG TAB PO SCH ×2 (07:47→21:12)
[2022-01-25] MEDS: Lantus 1000 UNITS/10 ML VIAL SC SCH (07:47)
[2022-01-25] MEDS: Multivitamin W/ Minerals 1 TAB PO SCH (07:48)
[2022-01-25] MEDS: Famotidine 20 MG TAB PO SCH (07:48)
[2022-01-25] MEDS: Empagliflozin 10 MG TAB PO SCH (07:48)
[2022-01-25] MEDS: Apixaban 5 MG TAB PO SCH ×2 (07:49→21:04)
[2022-01-25] MEDS: Ferrous Sulfate 325 MG TAB PO SCH (07:49)
[2022-01-25] MEDS: Senokot S 8.6-50 MG TAB PO PRN ×2 (07:52→21:12)
[2022-01-25] MEDS: cefTRIAXone\\ROCEPHIN 2 GM in Sodium Chloride 0.9% 100 ML IVPB SCH ×2 (09:41→21:02)
[2022-01-25] MEDS: Sodium Chloride 0.9% 1,000 ML IV SCH (16:18)
[2022-01-25] MEDS: Atorvastatin Calcium 20 MG TAB PO SCH (21:04)
[2022-01-26] MEDS: Sodium Chloride 0.9% 1,000 ML IV SCH (01:27)
[2022-01-26] MEDS: Ampicillin 2 GM in Sodium Chloride 0.9% 100 ML IVPB SCH ×6 (01:28→20:38)
[2022-01-26 05:58] LABS: Anion Gap 12 mmol/L (10-20); BUN (Urea Nitrogen) 17 mg/dL (8.4-25.7); Calc. Creatinine Clearance 47 mL/min (70-130); Calcium 8.5 mg/dL (7.8-10.44); Carbon Dioxide 24 mmol/L (23-31); Chloride 110 mmol/L (98-107); Estimated GFR 46; Glucose 104 mg/dL (83-110); Potassium 3.5 mmol/L (3.5-5.1); Sodium 142 mmol/L (136-145)
[2022-01-26] MEDS: Lantus 1000 UNITS/10 ML VIAL SC SCH (07:57)
[2022-01-26] MEDS: Sodium Bicarbonate Tab 325 MG TAB PO SCH ×2 (07:59→20:39)
[2022-01-26] MEDS: Losartan 25 MG TAB PO SCH (07:59)
[2022-01-26] MEDS: Apixaban 5 MG TAB PO SCH ×2 (08:00→20:40)
[2022-01-26] MEDS: Famotidine 20 MG TAB PO SCH (08:00)
[2022-01-26] MEDS: Empagliflozin 10 MG TAB PO SCH (08:00)
[2022-01-26] MEDS: Ferrous Sulfate 325 MG TAB PO SCH (08:00)
[2022-01-26] MEDS: Multivitamin W/ Minerals 1 TAB PO SCH (08:00)
[2022-01-26] MEDS: Bisacodyl 5 MG TAB PO PRN (08:04)
[2022-01-26] MEDS: Semaglutide (Ozempic) 0.25 MG/0.2 ML Pen.Injctr SC SCH (08:04)
[2022-01-26] MEDS: cefTRIAXone\\ROCEPHIN 2 GM in Sodium Chloride 0.9% 100 ML IVPB SCH ×2 (09:56→21:01)
[2022-01-26] MEDS ORDERED: Epoetin (ESRD) 20,000 UNITS/ML ONE (17:17)
[2022-01-26] MEDS: Epoetin (ESRD) 20,000 UNITS/ML IVP SCH ×2 (19:36→21:30)
[2022-01-26] MEDS: Senokot S 8.6-50 MG TAB PO PRN (20:40)
[2022-01-26] MEDS: Atorvastatin Calcium 20 MG TAB PO SCH (20:40)
[2022-01-27] MEDS: Ampicillin 2 GM in Sodium Chloride 0.9% 100 ML IVPB SCH ×6 (01:03→20:32)
[2022-01-27 05:19] VITALS: BMI 26.9
[2022-01-27 05:46] LABS: Anion Gap 12 mmol/L (10-20); BUN (Urea Nitrogen) 14 mg/dL (8.4-25.7); Calc. Creatinine Clearance 42 mL/min (70-130); Calcium 8.7 mg/dL (7.8-10.44); Carbon Dioxide 24 mmol/L (23-31); Chloride 111 mmol/L (98-107); Estimated GFR 40; Glucose 125 mg/dL (83-110); Potassium 3.5 mmol/L (3.5-5.1); Sodium 143 mmol/L (136-145)
[2022-01-27] MEDS: Sodium Bicarbonate Tab 325 MG TAB PO SCH ×2 (08:50→20:32)
[2022-01-27] MEDS: Ferrous Sulfate 325 MG TAB PO SCH (08:50)
[2022-01-27] MEDS: Losartan 25 MG TAB PO SCH (08:51)
[2022-01-27] MEDS: Empagliflozin 10 MG TAB PO SCH (08:51)
[2022-01-27] MEDS: Famotidine 20 MG TAB PO SCH (08:52)
[2022-01-27] MEDS: Multivitamin W/ Minerals 1 TAB PO SCH (08:52)
[2022-01-27] MEDS: Apixaban 5 MG TAB PO SCH ×2 (08:52→20:32)
[2022-01-27] MEDS: Lantus 1000 UNITS/10 ML VIAL SC SCH (08:53)
[2022-01-27] MEDS: cefTRIAXone\\ROCEPHIN 2 GM in Sodium Chloride 0.9% 100 ML IVPB SCH ×2 (09:37→20:59)
[2022-01-27 16:49] LABS: Bilirubin Negative (Negative); Blood, Urine Trace (Negative); Glucose, Urine (Dipstick) >=1000 mg/dL (Negative); Ketone, Urine Negative (Negative); Leukocyte Negative (Negative); Nitrite Negative (Negative); Protein, Urine (Dipstick) 30 mg/dL (Neg-Trace); Specific Gravity, Urine 1.015 (1.005-1.030); Urobilinogen 0.2 mg/dL (Less than 2)
[2022-01-27 16:50] LABS: Clarity Cloudy (Clear)
[2022-01-27 16:58] LABS: Mucous/LPF 4+ LPF (<2+); RBC/HPF 0-3 HPF (0-3); Transitional Epithelial 0-3 HPF (None Seen)
[2022-01-27] MEDS: Atorvastatin Calcium 20 MG TAB PO SCH (20:32)
[2022-01-27] MEDS: Senokot S 8.6-50 MG TAB PO PRN (20:59)
[2022-01-28] MEDS: Ampicillin 2 GM in Sodium Chloride 0.9% 100 ML IVPB SCH ×3 (00:11→09:34)
[2022-01-28 08:33] VITALS: BP 152/72; TEMP 98.3
[2022-01-28] MEDS: Empagliflozin 10 MG TAB PO SCH (09:34)
[2022-01-28] MEDS: Multivitamin W/ Minerals 1 TAB PO SCH (09:34)
[2022-01-28] MEDS: Ferrous Sulfate 325 MG TAB PO SCH (09:34)
[2022-01-28] MEDS: Famotidine 20 MG TAB PO SCH (09:34)
[2022-01-28] MEDS: Apixaban 5 MG TAB PO SCH (09:34)
[2022-01-28] MEDS: Losartan 25 MG TAB PO SCH (09:34)
[2022-01-28] MEDS: Sodium Bicarbonate Tab 325 MG TAB PO SCH (09:34)
[2022-01-28] MEDS: Lantus 1000 UNITS/10 ML VIAL SC SCH (09:35)
[2022-01-28] MEDS: cefTRIAXone\\ROCEPHIN 2 GM in Sodium Chloride 0.9% 100 ML IVPB SCH (10:11)
[2022-01-28 11:47] LABS: Creatinine, Urine 42.66 mg/dL (63-166)
== END 2022-01-28 11:57 | disposition home or self-care (01) | DRG 288 ==
LOC: NAV ACUTE 15:30
PROVIDERS: ADMIT Family Medicine; ATTEND Family Medicine
DX: I33.0 Acute and subacute infective endocarditis (principal); J18.9 Pneumonia, unspecified organism; R78.81 Bacteremia; Z20.822 Contact with and (suspected) exposure to COVID-19; R53.81 Other malaise; B95.2 Enterococcus as the cause of diseases classified elsewhere; N18.32 Chronic kidney disease, stage 3b; E11.22 Type 2 diabetes mellitus with diabetic chronic kidney disease; E78.5 Hyperlipidemia, unspecified; K59.00 Constipation, unspecified; R91.1 Solitary pulmonary nodule; I12.9 Hypertensive chronic kidney disease with stage 1 through stage 4 chronic kidney disease, or unspecified chronic kidney disease; D50.9 Iron deficiency anemia, unspecified; S20.211A Contusion of right front wall of thorax, initial encounter; Z79.01 Long term (current) use of anticoagulants; Z86.711 Personal history of pulmonary embolism; Z79.4 Long term (current) use of insulin; Z79.899 Other long term (current) drug therapy; Z85.51 Personal history of malignant neoplasm of bladder; Z85.46 Personal history of malignant neoplasm of prostate; Z92.21 Personal history of antineoplastic chemotherapy; Z92.3 Personal history of irradiation; Z90.79 Acquired absence of other genital organ(s); Z90.49 Acquired absence of other specified parts of digestive tract; Z90.89 Acquired absence of other organs; Z82.49 Family history of ischemic heart disease and other diseases of the circulatory system; Z83.3 Family history of diabetes mellitus; Z88.0 Allergy status to penicillin
CPT/HCPCS: 36415; 36416; 71250; 80048; 80053; 81001; 82570; 83036; 84300; 85025; 85652; 86140; 87040; 87811; J0290; J0696; J1815; J3490; J7050; Q0162; Q4081

== ENCOUNTER 2022-03-05 13:42 | Emergency (ER) | payer MEDICARE ==
[2022-03-05 14:32] LABS: #Basophils 0.1 thou/uL (0.0-0.2); #Lymphocytes 0.5 thou/uL (1.20-3.40); #Monocytes 0.6 thou/uL (0.11-0.59); #Neutrophils 7.6 thou/uL (1.40-6.50); %Basophils 1.3 % (0.0-1.0); %Eosinophils 0.1 % (0.0-10.0); %Lymphocytes 5.2 % (21.0-51.0); %Monocytes 7.3 % (0.0-10.0); %Neutrophils 86.1 % (42.0-75.0); Hemoglobin 10.8 g/dL (14.0-18.0); Mean Corpuscular HGB CONC 31.8 g/dL (32.0-36.0); Mean Corpuscular Hemoglobin 30.2 pg (27.0-31.0); Mean Corpuscular Volume 94.9 fl (78.0-98.0); Mean Platelet Volume 5.7 fL (7.4-10.4); Platelet Count 139 10x3/uL (130-400); RBC Distribution Width 14.3 % (11.5-14.5); Red Blood Cell (RBC) Count 3.56 mill/uL (4.70-6.10); White Blood Cell (WBC) Count 8.8 10x3/uL (4.8-10.8)
[2022-03-05 14:33] LABS: Bilirubin Negative (Negative); Blood, Urine Trace (Negative); Clarity Slightly Cloudy (Clear); Glucose, Urine (Dipstick) >=1000 mg/dL (Negative); Ketone, Urine Negative (Negative); Leukocyte Negative (Negative); Nitrite Negative (Negative); Protein, Urine (Dipstick) Trace mg/dL (Neg-Trace); Urobilinogen 0.2 mg/dL (Less than 2); pH, Urine 6.5 (5.0-9.0)
[2022-03-05 14:38] LABS: Bacteria/HPF 1+ HPF (None Seen); RBC/HPF 0-3 HPF (0-3); Squamous Epithelial None Seen HPF (0-3); WBC/HPF 0-3 HPF (0-3)
[2022-03-05 14:51] LABS: ALT (SGPT) 15 U/L (8-55); AST (SGOT) 20 U/L (5-34); Albumin 3.3 g/dL (3.4-4.8); Alkaline Phosphatase 85 U/L (40-110); Anion Gap 14 mmol/L (10-20); BUN (Urea Nitrogen) 42 mg/dL (8.4-25.7); Bilirubin, Total 0.3 mg/dL (0.2-1.2); Calc. Creatinine Clearance 0 mL/min (70-130); Calcium 8.3 mg/dL (7.8-10.44); Carbon Dioxide 19 mmol/L (23-31); Chloride 107 mmol/L (98-107); Estimated GFR 38; Globulin 3.3 g/dL (2.4-3.5); Glucose 212 mg/dL (83-110); Potassium 4.2 mmol/L (3.5-5.1); Protein, Total 6.6 g/dL (5.8-8.1); Sodium 136 mmol/L (136-145)
[2022-03-05] MEDS ORDERED: Sodium Chloride 0.9% 1,000 ML ONE ×2 (15:57)
[2022-03-05] MEDS ORDERED: Bacitracin 1 PK ONE (15:57)
== END 2022-03-05 18:02 | disposition home or self-care (01) ==
LOC: NAV ERS 13:42
DX: S00.03XA Contusion of scalp, initial encounter (principal); E86.0 Dehydration; D64.9 Anemia, unspecified; E11.9 Type 2 diabetes mellitus without complications; E78.00 Pure hypercholesterolemia, unspecified; Z79.4 Long term (current) use of insulin; W19.XXXA Unspecified fall, initial encounter
CPT/HCPCS: 36415; 70450; 71045; 72125; 80053; 81003; 81015; 83605; 84484; 85025; 87040; 87077; 87086; 87149; 87186; 93005; 96360; 96361; J7050

== ENCOUNTER 2022-03-14 16:27 | Inpatient (IN) | payer MEDICARE ==
[2022-03-14] MEDS ORDERED: Bisacodyl 5 MG TAB PO PRN (18:03)
[2022-03-14] MEDS ORDERED: Ondansetron ODT 4 MG TAB SL PRN (18:03)
[2022-03-14] MEDS ORDERED: Ampicillin 2 GM VIAL IVPB SCH (21:00)
[2022-03-14] MEDS ORDERED: cefTRIAXone\\ROCEPHIN 2 GM VIAL IVPB SCH (21:00)
[2022-03-14] MEDS: cefTRIAXone\\ROCEPHIN 2 GM in Sodium Chloride 0.9% 100 ML IVPB SCH (21:19)
[2022-03-14] MEDS: Famotidine 20 MG TAB PO SCH (21:19)
[2022-03-14] MEDS: Apixaban 5 MG TAB PO SCH (21:19)
[2022-03-14] MEDS: Atorvastatin Calcium 20 MG TAB PO SCH (21:19)
[2022-03-14] MEDS: Ampicillin 2 GM in Sodium Chloride 0.9% 100 ML IVPB SCH (21:20)
[2022-03-15] MEDS: Ampicillin 2 GM in Sodium Chloride 0.9% 100 ML IVPB SCH ×4 (03:29→20:46)
[2022-03-15 05:39] LABS: #Basophils 0.1 thou/uL (0.0-0.2); #Eosinphils 0.1 thou/uL (0.0-0.7); #Lymphocytes 1.2 thou/uL (1.20-3.40); #Monocytes 0.4 thou/uL (0.11-0.59); #Neutrophils 3.4 thou/uL (1.40-6.50); %Basophils 1.5 % (0.0-1.0); %Eosinophils 1.9 % (0.0-10.0); %Lymphocytes 23.8 % (21.0-51.0); %Monocytes 8.2 % (0.0-10.0); %Neutrophils 64.6 % (42.0-75.0); Hemoglobin 9.6 g/dL (14.0-18.0); Mean Corpuscular HGB CONC 31.5 g/dL (32.0-36.0); Mean Corpuscular Hemoglobin 29.7 pg (27.0-31.0); Mean Corpuscular Volume 94.3 fl (78.0-98.0); Mean Platelet Volume 5.5 fL (7.4-10.4); Platelet Count 196 10x3/uL (130-400); RBC Distribution Width 14.3 % (11.5-14.5); Red Blood Cell (RBC) Count 3.22 mill/uL (4.70-6.10); White Blood Cell (WBC) Count 5.2 10x3/uL (4.8-10.8)
[2022-03-15 05:59] LABS: ALT (SGPT) 10 U/L (8-55); AST (SGOT) 17 U/L (5-34); Albumin 2.9 g/dL (3.4-4.8); Alkaline Phosphatase 73 U/L (40-110); Anion Gap 12 mmol/L (10-20); BUN (Urea Nitrogen) 20 mg/dL (8.4-25.7); Bilirubin, Total 0.1 mg/dL (0.2-1.2); Calc. Creatinine Clearance 47 mL/min (70-130); Calcium 8.1 mg/dL (7.8-10.44); Carbon Dioxide 25 mmol/L (23-31); Chloride 109 mmol/L (98-107); Estimated GFR 55; Globulin 2.8 g/dL (2.4-3.5); Glucose 107 mg/dL (83-110); Protein, Total 5.7 g/dL (5.8-8.1); Sodium 142 mmol/L (136-145)
[2022-03-15] MEDS ORDERED: Lantus 1000 UNITS/10 ML VIAL SC SCH (09:00)
[2022-03-15] MEDS: Apixaban 5 MG TAB PO SCH ×2 (10:02→20:45)
[2022-03-15] MEDS: Multivitamin W/ Minerals 1 TAB PO SCH (10:02)
[2022-03-15] MEDS: Empagliflozin 10 MG TAB PO SCH (10:02)
[2022-03-15] MEDS: Ferrous Sulfate 325 MG TAB PO SCH (10:03)
[2022-03-15] MEDS: Senokot S 8.6-50 MG TAB PO PRN (10:08)
[2022-03-15] MEDS: cefTRIAXone\\ROCEPHIN 2 GM in Sodium Chloride 0.9% 100 ML IVPB SCH ×2 (11:00→20:46)
[2022-03-15] MEDS ORDERED: Dextrose 5% in Water 1,000 ML IV PRN (12:30)
[2022-03-15] MEDS ORDERED: Dextrose 50% Abboject 50 ML SYRINGE SLOW IVP PRN (12:30)
[2022-03-15] MEDS: Atorvastatin Calcium 20 MG TAB PO SCH (20:45)
[2022-03-15] MEDS: Famotidine 20 MG TAB PO SCH (20:45)
[2022-03-16] MEDS: Ampicillin 2 GM in Sodium Chloride 0.9% 100 ML IVPB SCH ×5 (03:22→21:10)
[2022-03-16] MEDS: Senokot S 8.6-50 MG TAB PO PRN (08:38)
[2022-03-16] MEDS: Ferrous Sulfate 325 MG TAB PO SCH (08:38)
[2022-03-16] MEDS: Empagliflozin 10 MG TAB PO SCH (08:38)
[2022-03-16] MEDS: Lantus 1000 UNITS/10 ML VIAL SC SCH (08:39)
[2022-03-16] MEDS: Multivitamin W/ Minerals 1 TAB PO SCH (08:39)
[2022-03-16] MEDS: Apixaban 5 MG TAB PO SCH ×2 (08:39→21:10)
[2022-03-16] MEDS: cefTRIAXone\\ROCEPHIN 2 GM in Sodium Chloride 0.9% 100 ML IVPB SCH ×2 (09:26→21:10)
[2022-03-16] MEDS: Atorvastatin Calcium 20 MG TAB PO SCH (21:09)
[2022-03-16] MEDS: Famotidine 20 MG TAB PO SCH (21:09)
[2022-03-17] MEDS: Ampicillin 2 GM in Sodium Chloride 0.9% 100 ML IVPB SCH ×6 (01:26→21:06)
[2022-03-17] MEDS: Ferrous Sulfate 325 MG TAB PO SCH (08:21)
[2022-03-17] MEDS: Lantus 1000 UNITS/10 ML VIAL SC SCH (08:21)
[2022-03-17] MEDS: Empagliflozin 10 MG TAB PO SCH (08:21)
[2022-03-17] MEDS: Multivitamin W/ Minerals 1 TAB PO SCH (08:21)
[2022-03-17] MEDS: Apixaban 5 MG TAB PO SCH ×2 (08:21→21:05)
[2022-03-17] MEDS: Senokot S 8.6-50 MG TAB PO PRN (08:24)
[2022-03-17] MEDS: cefTRIAXone\\ROCEPHIN 2 GM in Sodium Chloride 0.9% 100 ML IVPB SCH ×2 (09:08→21:05)
[2022-03-17] MEDS: Dulaglutide [Trulicity] 0.75 MG/0.5 ML Pen.Injctr SC SCH (13:45)
[2022-03-17] MEDS ORDERED: cefTRIAXone\\ROCEPHIN 2 GM VIAL ONE (20:53)
[2022-03-17] MEDS: Atorvastatin Calcium 20 MG TAB PO SCH (21:05)
[2022-03-17] MEDS: Famotidine 20 MG TAB PO SCH (21:05)
[2022-03-18] MEDS: Ampicillin 2 GM in Sodium Chloride 0.9% 100 ML IVPB SCH ×6 (01:40→21:00)
[2022-03-18 06:22] LABS: #Basophils 0.1 thou/uL (0.0-0.2); #Eosinphils 0.1 thou/uL (0.0-0.7); #Lymphocytes 1.1 thou/uL (1.20-3.40); #Monocytes 0.5 thou/uL (0.11-0.59); #Neutrophils 3.9 thou/uL (1.40-6.50); %Basophils 1.3 % (0.0-1.0); %Eosinophils 2.1 % (0.0-10.0); %Lymphocytes 18.6 % (21.0-51.0); %Monocytes 9.3 % (0.0-10.0); %Neutrophils 68.8 % (42.0-75.0); Hemoglobin 9.9 g/dL (14.0-18.0); Mean Corpuscular HGB CONC 31.7 g/dL (32.0-36.0); Mean Corpuscular Hemoglobin 29.8 pg (27.0-31.0); Mean Corpuscular Volume 94.1 fl (78.0-98.0); Mean Platelet Volume 5.9 fL (7.4-10.4); Platelet Count 192 10x3/uL (130-400); RBC Distribution Width 14.4 % (11.5-14.5); Red Blood Cell (RBC) Count 3.32 mill/uL (4.70-6.10); White Blood Cell (WBC) Count 5.7 10x3/uL (4.8-10.8)
[2022-03-18 06:35] LABS: Anion Gap 14 mmol/L (10-20); BUN (Urea Nitrogen) 23 mg/dL (8.4-25.7); Calc. Creatinine Clearance 43 mL/min (70-130); Calcium 8.5 mg/dL (7.8-10.44); Carbon Dioxide 22 mmol/L (23-31); Chloride 110 mmol/L (98-107); Estimated GFR 50; Glucose 110 mg/dL (83-110); Sodium 142 mmol/L (136-145)
[2022-03-18] MEDS: Multivitamin W/ Minerals 1 TAB PO SCH (08:45)
[2022-03-18] MEDS: Ferrous Sulfate 325 MG TAB PO SCH (08:45)
[2022-03-18] MEDS: Lantus 1000 UNITS/10 ML VIAL SC SCH (08:45)
[2022-03-18] MEDS: Apixaban 5 MG TAB PO SCH ×2 (08:45→21:00)
[2022-03-18] MEDS: Empagliflozin 10 MG TAB PO SCH (08:45)
[2022-03-18] MEDS ORDERED: Dulaglutide [Trulicity] 0.75 MG/0.5 ML Pen.Injctr SC SCH (09:00)
[2022-03-18] MEDS: cefTRIAXone\\ROCEPHIN 2 GM in Sodium Chloride 0.9% 100 ML IVPB SCH ×2 (10:31→21:01)
[2022-03-18] MEDS: HumaLOG 300 UNITS/3 ML VIAL SC PRN ×2 (11:50→21:04)
[2022-03-18] MEDS ORDERED: Ampicillin 2 GM in Sodium Chloride 0.9% 100 ML IVPB SCH (18:00)
[2022-03-18] MEDS: Famotidine 20 MG TAB PO SCH (21:00)
[2022-03-18] MEDS: Atorvastatin Calcium 20 MG TAB PO SCH (21:00)
[2022-03-19] MEDS: Ampicillin 2 GM in Sodium Chloride 0.9% 100 ML IVPB SCH ×6 (01:19→20:14)
[2022-03-19] MEDS: Empagliflozin 10 MG TAB PO SCH (08:03)
[2022-03-19] MEDS: Multivitamin W/ Minerals 1 TAB PO SCH (08:03)
[2022-03-19] MEDS: Apixaban 5 MG TAB PO SCH ×2 (08:03→20:26)
[2022-03-19] MEDS: Ferrous Sulfate 325 MG TAB PO SCH (08:03)
[2022-03-19] MEDS: Senokot S 8.6-50 MG TAB PO PRN (08:05)
[2022-03-19] MEDS: Lantus 1000 UNITS/10 ML VIAL SC SCH (08:05)
[2022-03-19] MEDS: cefTRIAXone\\ROCEPHIN 2 GM in Sodium Chloride 0.9% 100 ML IVPB SCH ×2 (08:07→20:33)
[2022-03-19] MEDS: HumaLOG 300 UNITS/3 ML VIAL SC PRN (11:23)
[2022-03-19] MEDS: Atorvastatin Calcium 20 MG TAB PO SCH (20:25)
[2022-03-19] MEDS: Famotidine 20 MG TAB PO SCH (20:25)
[2022-03-20] MEDS: AMPicillin 1 GM in Sodium Chloride 0.9% 100 ML IVPB SCH (00:59)
[2022-03-20] MEDS: Ampicillin 2 GM in Sodium Chloride 0.9% 100 ML IVPB SCH ×6 (01:00→20:27)
[2022-03-20] MEDS: Empagliflozin 10 MG TAB PO SCH (08:26)
[2022-03-20] MEDS: Multivitamin W/ Minerals 1 TAB PO SCH (08:26)
[2022-03-20] MEDS: Ferrous Sulfate 325 MG TAB PO SCH (08:26)
[2022-03-20] MEDS: Apixaban 5 MG TAB PO SCH ×2 (08:26→20:27)
[2022-03-20] MEDS: cefTRIAXone\\ROCEPHIN 2 GM in Sodium Chloride 0.9% 100 ML IVPB SCH ×2 (08:27→21:06)
[2022-03-20] MEDS: Lantus 1000 UNITS/10 ML VIAL SC SCH (08:29)
[2022-03-20] MEDS: Senokot S 8.6-50 MG TAB PO PRN (08:33)
[2022-03-20] MEDS: HumaLOG 300 UNITS/3 ML VIAL SC PRN (17:07)
[2022-03-20] MEDS: Atorvastatin Calcium 20 MG TAB PO SCH (20:27)
[2022-03-20] MEDS: Famotidine 20 MG TAB PO SCH (20:27)
[2022-03-20] MEDS ORDERED: cefTRIAXone\\ROCEPHIN 2 GM VIAL ONE (21:03)
[2022-03-21] MEDS: Ampicillin 2 GM in Sodium Chloride 0.9% 100 ML IVPB SCH ×6 (00:58→20:49)
[2022-03-21 06:25] LABS: ALT (SGPT) 10 U/L (8-55); AST (SGOT) 16 U/L (5-34); Albumin 3.2 g/dL (3.4-4.8); Alkaline Phosphatase 78 U/L (40-110); Anion Gap 13 mmol/L (10-20); BUN (Urea Nitrogen) 19 mg/dL (8.4-25.7); Bilirubin, Total 0.1 mg/dL (0.2-1.2); CRP (Inflammatory) 0.71 mg/dL (= or < 0.5); Calc. Creatinine Clearance 40 mL/min (70-130); Calcium 8.6 mg/dL (7.8-10.44); Carbon Dioxide 22 mmol/L (23-31); Chloride 111 mmol/L (98-107); Estimated GFR 45; Globulin 2.8 g/dL (2.4-3.5); Glucose 109 mg/dL (83-110); Potassium 4.1 mmol/L (3.5-5.1); Sodium 142 mmol/L (136-145)
[2022-03-21 06:29] LABS: #Basophils 0.1 thou/uL (0.0-0.2); #Eosinphils 0.1 thou/uL (0.0-0.7); #Lymphocytes 1.1 thou/uL (1.20-3.40); #Monocytes 0.5 thou/uL (0.11-0.59); #Neutrophils 3.6 thou/uL (1.40-6.50); %Basophils 1.2 % (0.0-1.0); %Eosinophils 2.1 % (0.0-10.0); %Lymphocytes 20.3 % (21.0-51.0); %Monocytes 9.5 % (0.0-10.0); %Neutrophils 66.9 % (42.0-75.0); Hemoglobin 10.1 g/dL (14.0-18.0); Mean Corpuscular HGB CONC 32.7 g/dL (32.0-36.0); Mean Corpuscular Hemoglobin 30.5 pg (27.0-31.0); Mean Corpuscular Volume 93.2 fl (78.0-98.0); Mean Platelet Volume 5.6 fL (7.4-10.4); Platelet Count 232 10x3/uL (130-400); RBC Distribution Width 14.8 % (11.5-14.5); White Blood Cell (WBC) Count 5.4 10x3/uL (4.8-10.8)
[2022-03-21] MEDS: cefTRIAXone\\ROCEPHIN 2 GM in Sodium Chloride 0.9% 100 ML IVPB SCH ×2 (08:37→20:48)
[2022-03-21] MEDS: Multivitamin W/ Minerals 1 TAB PO SCH (08:38)
[2022-03-21] MEDS: Apixaban 5 MG TAB PO SCH ×2 (08:38→20:49)
[2022-03-21] MEDS: Empagliflozin 10 MG TAB PO SCH (08:38)
[2022-03-21] MEDS: Lantus 1000 UNITS/10 ML VIAL SC SCH (08:38)
[2022-03-21] MEDS: Ferrous Sulfate 325 MG TAB PO SCH (08:39)
[2022-03-21] MEDS: Senokot S 8.6-50 MG TAB PO PRN (09:20)
[2022-03-21] MEDS: HumaLOG 300 UNITS/3 ML VIAL SC PRN (17:48)
[2022-03-21] MEDS: Atorvastatin Calcium 20 MG TAB PO SCH (20:49)
[2022-03-21] MEDS: Famotidine 20 MG TAB PO SCH (20:49)
[2022-03-22] MEDS: Ampicillin 2 GM in Sodium Chloride 0.9% 100 ML IVPB SCH ×4 (02:59→20:58)
[2022-03-22 06:02] LABS: Platelet Count 234 10x3/uL (130-400)
[2022-03-22] MEDS ORDERED: Activase 2 MG VIAL CATH SCH ×2 (07:45→16:30)
[2022-03-22] MEDS: Apixaban 5 MG TAB PO SCH ×2 (08:42→20:56)
[2022-03-22] MEDS: Senokot S 8.6-50 MG TAB PO PRN (08:42)
[2022-03-22] MEDS: Multivitamin W/ Minerals 1 TAB PO SCH (08:42)
[2022-03-22] MEDS: Ferrous Sulfate 325 MG TAB PO SCH (08:42)
[2022-03-22] MEDS: Empagliflozin 10 MG TAB PO SCH (08:43)
[2022-03-22] MEDS: cefTRIAXone\\ROCEPHIN 2 GM in Sodium Chloride 0.9% 100 ML IVPB SCH ×2 (08:44→20:57)
[2022-03-22] MEDS: Lantus 1000 UNITS/10 ML VIAL SC SCH (08:44)
[2022-03-22] MEDS: HumaLOG 300 UNITS/3 ML VIAL SC PRN ×2 (12:05→17:29)
[2022-03-22] MEDS: Famotidine 20 MG TAB PO SCH (20:56)
[2022-03-22] MEDS: Atorvastatin Calcium 20 MG TAB PO SCH (20:56)
[2022-03-23] MEDS: Ampicillin 2 GM in Sodium Chloride 0.9% 100 ML IVPB SCH ×4 (02:38→21:15)
[2022-03-23] MEDS: cefTRIAXone\\ROCEPHIN 2 GM in Sodium Chloride 0.9% 100 ML IVPB SCH ×2 (08:27→21:33)
[2022-03-23] MEDS: Lantus 1000 UNITS/10 ML VIAL SC SCH (08:28)
[2022-03-23] MEDS: Ferrous Sulfate 325 MG TAB PO SCH (08:29)
[2022-03-23] MEDS: Apixaban 5 MG TAB PO SCH ×2 (08:29→21:15)
[2022-03-23] MEDS: Multivitamin W/ Minerals 1 TAB PO SCH (08:29)
[2022-03-23] MEDS: Empagliflozin 10 MG TAB PO SCH (08:29)
[2022-03-23] MEDS: Senokot S 8.6-50 MG TAB PO PRN (08:33)
[2022-03-23] MEDS: HumaLOG 300 UNITS/3 ML VIAL SC PRN ×2 (12:29→17:25)
[2022-03-23] MEDS: Atorvastatin Calcium 20 MG TAB PO SCH (21:15)
[2022-03-23] MEDS: Famotidine 20 MG TAB PO SCH (21:15)
[2022-03-24] MEDS: Ampicillin 2 GM in Sodium Chloride 0.9% 100 ML IVPB SCH ×4 (03:01→20:45)
[2022-03-24] MEDS: Ferrous Sulfate 325 MG TAB PO SCH (08:23)
[2022-03-24] MEDS: Empagliflozin 10 MG TAB PO SCH (08:23)
[2022-03-24] MEDS: Apixaban 5 MG TAB PO SCH ×2 (08:23→20:46)
[2022-03-24] MEDS: Multivitamin W/ Minerals 1 TAB PO SCH (08:23)
[2022-03-24] MEDS: cefTRIAXone\\ROCEPHIN 2 GM in Sodium Chloride 0.9% 100 ML IVPB SCH ×2 (08:24→20:46)
[2022-03-24] MEDS: Lantus 1000 UNITS/10 ML VIAL SC SCH (08:28)
[2022-03-24] MEDS: Senokot S 8.6-50 MG TAB PO PRN (08:30)
[2022-03-24] MEDS: HumaLOG 300 UNITS/3 ML VIAL SC PRN ×2 (11:41→16:20)
[2022-03-24] MEDS: Dulaglutide [Trulicity] 0.75 MG/0.5 ML Pen.Injctr SC SCH (16:21)
[2022-03-24] MEDS: Atorvastatin Calcium 20 MG TAB PO SCH (20:46)
[2022-03-24] MEDS: Famotidine 20 MG TAB PO SCH (20:46)
[2022-03-25] MEDS: Ampicillin 2 GM in Sodium Chloride 0.9% 100 ML IVPB SCH ×4 (02:52→20:26)
[2022-03-25] MEDS: Apixaban 5 MG TAB PO SCH ×2 (09:38→20:26)
[2022-03-25] MEDS: Empagliflozin 10 MG TAB PO SCH (09:38)
[2022-03-25] MEDS: Multivitamin W/ Minerals 1 TAB PO SCH (09:38)
[2022-03-25] MEDS: Ferrous Sulfate 325 MG TAB PO SCH (09:38)
[2022-03-25] MEDS: Lantus 1000 UNITS/10 ML VIAL SC SCH (09:40)
[2022-03-25] MEDS: Senokot S 8.6-50 MG TAB PO PRN (09:41)
[2022-03-25] MEDS ORDERED: cefTRIAXone\\ROCEPHIN 2 GM in Sodium Chloride 0.9% 100 ML IVPB SCH (10:45)
[2022-03-25] MEDS: HumaLOG 300 UNITS/3 ML VIAL SC PRN (17:21)
[2022-03-25] MEDS: Famotidine 20 MG TAB PO SCH (20:27)
[2022-03-25] MEDS: Atorvastatin Calcium 20 MG TAB PO SCH (20:27)
[2022-03-25] MEDS: cefTRIAXone\\ROCEPHIN 2 GM in Sodium Chloride 0.9% 100 ML IVPB SCH (21:00)
[2022-03-26] MEDS: Ampicillin 2 GM in Sodium Chloride 0.9% 100 ML IVPB SCH ×4 (03:03→20:27)
[2022-03-26] MEDS: cefTRIAXone\\ROCEPHIN 2 GM in Sodium Chloride 0.9% 100 ML IVPB SCH ×2 (08:49→20:28)
[2022-03-26] MEDS: Empagliflozin 10 MG TAB PO SCH (08:50)
[2022-03-26] MEDS: Ferrous Sulfate 325 MG TAB PO SCH (08:50)
[2022-03-26] MEDS: Multivitamin W/ Minerals 1 TAB PO SCH (08:50)
[2022-03-26] MEDS: Apixaban 5 MG TAB PO SCH ×2 (08:50→20:27)
[2022-03-26] MEDS: Lantus 1000 UNITS/10 ML VIAL SC SCH (08:51)
[2022-03-26] MEDS: HumaLOG 300 UNITS/3 ML VIAL SC PRN (17:34)
[2022-03-26] MEDS: Atorvastatin Calcium 20 MG TAB PO SCH (20:27)
[2022-03-26] MEDS: Famotidine 20 MG TAB PO SCH (20:27)
[2022-03-27] MEDS: Ampicillin 2 GM in Sodium Chloride 0.9% 100 ML IVPB SCH ×4 (02:58→20:41)
[2022-03-27] MEDS: Ferrous Sulfate 325 MG TAB PO SCH (08:33)
[2022-03-27] MEDS: Multivitamin W/ Minerals 1 TAB PO SCH (08:33)
[2022-03-27] MEDS: Apixaban 5 MG TAB PO SCH ×2 (08:33→20:41)
[2022-03-27] MEDS: Empagliflozin 10 MG TAB PO SCH (08:33)
[2022-03-27] MEDS: cefTRIAXone\\ROCEPHIN 2 GM in Sodium Chloride 0.9% 100 ML IVPB SCH ×2 (08:33→20:43)
[2022-03-27] MEDS: Lantus 1000 UNITS/10 ML VIAL SC SCH (08:36)
[2022-03-27] MEDS ORDERED: Ampicillin 2 GM VIAL ONE (08:51)
[2022-03-27] MEDS: Senokot S 8.6-50 MG TAB PO PRN (09:01)
[2022-03-27] MEDS: HumaLOG 300 UNITS/3 ML VIAL SC PRN (13:16)
[2022-03-27] MEDS: Atorvastatin Calcium 20 MG TAB PO SCH (20:41)
[2022-03-27] MEDS: Famotidine 20 MG TAB PO SCH (20:41)
[2022-03-28] MEDS: Ampicillin 2 GM in Sodium Chloride 0.9% 100 ML IVPB SCH ×4 (02:17→20:27)
[2022-03-28] MEDS: Apixaban 5 MG TAB PO SCH ×2 (08:21→20:27)
[2022-03-28] MEDS: cefTRIAXone\\ROCEPHIN 2 GM in Sodium Chloride 0.9% 100 ML IVPB SCH ×2 (08:21→21:01)
[2022-03-28] MEDS: Ferrous Sulfate 325 MG TAB PO SCH (08:22)
[2022-03-28] MEDS: Senokot S 8.6-50 MG TAB PO SCH (08:22)
[2022-03-28] MEDS: Empagliflozin 10 MG TAB PO SCH (08:22)
[2022-03-28] MEDS: Multivitamin W/ Minerals 1 TAB PO SCH (08:22)
[2022-03-28] MEDS: Lantus 1000 UNITS/10 ML VIAL SC SCH (08:24)
[2022-03-28 11:54] LABS: ALT (SGPT) 8 U/L (8-55); AST (SGOT) 14 U/L (5-34); Albumin 3.6 g/dL (3.4-4.8); Alkaline Phosphatase 85 U/L (40-110); Anion Gap 13 mmol/L (10-20); BUN (Urea Nitrogen) 23 mg/dL (8.4-25.7); Bilirubin, Total 0.1 mg/dL (0.2-1.2); CRP (Inflammatory) Less than 0.50 mg/dL (= or < 0.5); Calc. Creatinine Clearance 39 mL/min (70-130); Carbon Dioxide 23 mmol/L (23-31); Chloride 108 mmol/L (98-107); Estimated GFR 44; Globulin 3.1 g/dL (2.4-3.5); Glucose 134 mg/dL (83-110); Potassium 4.3 mmol/L (3.5-5.1); Protein, Total 6.7 g/dL (5.8-8.1); Sodium 140 mmol/L (136-145)
[2022-03-28 12:24] LABS: #Basophils 0.1 thou/uL (0.0-0.2); #Eosinphils 0.1 thou/uL (0.0-0.7); #Monocytes 0.5 thou/uL (0.11-0.59); #Neutrophils 2.9 thou/uL (1.40-6.50); %Basophils 1.7 % (0.0-1.0); %Eosinophils 2.5 % (0.0-10.0); %Lymphocytes 21.3 % (21.0-51.0); %Neutrophils 64.6 % (42.0-75.0); Hemoglobin 10.8 g/dL (14.0-18.0); Mean Corpuscular HGB CONC 31.8 g/dL (32.0-36.0); Mean Corpuscular Hemoglobin 29.7 pg (27.0-31.0); Mean Corpuscular Volume 93.4 fl (78.0-98.0); Mean Platelet Volume 6.5 fL (7.4-10.4); Platelet Count 186 10x3/uL (130-400); RBC Distribution Width 14.7 % (11.5-14.5); Red Blood Cell (RBC) Count 3.65 mill/uL (4.70-6.10); White Blood Cell (WBC) Count 4.5 10x3/uL (4.8-10.8)
[2022-03-28] MEDS: HumaLOG 300 UNITS/3 ML VIAL SC PRN (16:45)
[2022-03-28] MEDS: Famotidine 20 MG TAB PO SCH (20:27)
[2022-03-28] MEDS: Atorvastatin Calcium 20 MG TAB PO SCH (20:27)
[2022-03-29] MEDS: Ampicillin 2 GM in Sodium Chloride 0.9% 100 ML IVPB SCH ×4 (03:00→20:32)
[2022-03-29 06:13] LABS: Hemoglobin 10.1 g/dL (14.0-18.0); Platelet Count 194 10x3/uL (130-400)
[2022-03-29] MEDS: Empagliflozin 10 MG TAB PO SCH (08:00)
[2022-03-29] MEDS: Multivitamin W/ Minerals 1 TAB PO SCH (08:00)
[2022-03-29] MEDS: Senokot S 8.6-50 MG TAB PO SCH (08:00)
[2022-03-29] MEDS: Apixaban 5 MG TAB PO SCH ×2 (08:00→20:32)
[2022-03-29] MEDS: Ferrous Sulfate 325 MG TAB PO SCH (08:00)
[2022-03-29] MEDS: cefTRIAXone\\ROCEPHIN 2 GM in Sodium Chloride 0.9% 100 ML IVPB SCH ×2 (08:01→21:10)
[2022-03-29] MEDS: Lantus 1000 UNITS/10 ML VIAL SC SCH (08:06)
[2022-03-29] MEDS: HumaLOG 300 UNITS/3 ML VIAL SC PRN (11:47)
[2022-03-29] MEDS: Famotidine 20 MG TAB PO SCH (20:32)
[2022-03-29] MEDS: Atorvastatin Calcium 20 MG TAB PO SCH (20:32)
[2022-03-30] MEDS: Ampicillin 2 GM in Sodium Chloride 0.9% 100 ML IVPB SCH ×4 (03:15→20:45)
[2022-03-30] MEDS: Apixaban 5 MG TAB PO SCH ×2 (08:48→20:05)
[2022-03-30] MEDS: Senokot S 8.6-50 MG TAB PO SCH (08:48)
[2022-03-30] MEDS: Ferrous Sulfate 325 MG TAB PO SCH (08:48)
[2022-03-30] MEDS: Empagliflozin 10 MG TAB PO SCH (08:48)
[2022-03-30] MEDS: Multivitamin W/ Minerals 1 TAB PO SCH (08:48)
[2022-03-30] MEDS: Lantus 1000 UNITS/10 ML VIAL SC SCH (08:49)
[2022-03-30] MEDS: cefTRIAXone\\ROCEPHIN 2 GM in Sodium Chloride 0.9% 100 ML IVPB SCH ×2 (09:37→20:04)
[2022-03-30 10:58] LABS: Anion Gap 13 mmol/L (10-20); BUN (Urea Nitrogen) 23 mg/dL (8.4-25.7); Calc. Creatinine Clearance 39 mL/min (70-130); Carbon Dioxide 23 mmol/L (23-31); Chloride 110 mmol/L (98-107); Estimated GFR 45; Glucose 160 mg/dL (83-110); Sodium 141 mmol/L (136-145)
[2022-03-30] MEDS: HumaLOG 300 UNITS/3 ML VIAL SC PRN (16:55)
[2022-03-30] MEDS: Atorvastatin Calcium 20 MG TAB PO SCH (20:05)
[2022-03-30] MEDS: Famotidine 20 MG TAB PO SCH (20:05)
[2022-03-31] MEDS: Ampicillin 2 GM in Sodium Chloride 0.9% 100 ML IVPB SCH ×4 (02:58→20:04)
[2022-03-31 05:58] VITALS: BMI 25.7
[2022-03-31] MEDS: Empagliflozin 10 MG TAB PO SCH (08:03)
[2022-03-31] MEDS: Senokot S 8.6-50 MG TAB PO SCH (08:03)
[2022-03-31] MEDS: Apixaban 5 MG TAB PO SCH ×2 (08:03→20:05)
[2022-03-31] MEDS: Multivitamin W/ Minerals 1 TAB PO SCH (08:03)
[2022-03-31] MEDS: Lantus 1000 UNITS/10 ML VIAL SC SCH (08:04)
[2022-03-31] MEDS: Ferrous Sulfate 325 MG TAB PO SCH (08:04)
[2022-03-31] MEDS: cefTRIAXone\\ROCEPHIN 2 GM in Sodium Chloride 0.9% 100 ML IVPB SCH ×2 (08:49→20:04)
[2022-03-31] MEDS: HumaLOG 300 UNITS/3 ML VIAL SC PRN (11:54)
[2022-03-31] MEDS: Sodium Chloride 0.9% 1,000 ML IV SCH ×2 (15:00→16:09)
[2022-03-31] MEDS: Dulaglutide [Trulicity] 0.75 MG/0.5 ML Pen.Injctr SC SCH (17:47)
[2022-03-31] MEDS: Famotidine 20 MG TAB PO SCH (20:04)
[2022-03-31] MEDS: Atorvastatin Calcium 20 MG TAB PO SCH (20:05)
[2022-04-01] MEDS: Ampicillin 2 GM in Sodium Chloride 0.9% 100 ML IVPB SCH ×4 (02:35→20:16)
[2022-04-01 06:24] LABS: Anion Gap 14 mmol/L (10-20); BUN (Urea Nitrogen) 21 mg/dL (8.4-25.7); Calc. Creatinine Clearance 47 mL/min (70-130); Calcium 8.6 mg/dL (7.8-10.44); Carbon Dioxide 21 mmol/L (23-31); Chloride 112 mmol/L (98-107); Estimated GFR 53; Glucose 100 mg/dL (83-110); Potassium 3.9 mmol/L (3.5-5.1); Sodium 143 mmol/L (136-145)
[2022-04-01] MEDS: Apixaban 5 MG TAB PO SCH ×2 (08:26→20:16)
[2022-04-01] MEDS: Ferrous Sulfate 325 MG TAB PO SCH (08:26)
[2022-04-01] MEDS: Senokot S 8.6-50 MG TAB PO SCH (08:26)
[2022-04-01] MEDS: Multivitamin W/ Minerals 1 TAB PO SCH (08:26)
[2022-04-01] MEDS: Empagliflozin 10 MG TAB PO SCH (08:26)
[2022-04-01] MEDS: Lantus 1000 UNITS/10 ML VIAL SC SCH (08:27)
[2022-04-01] MEDS: cefTRIAXone\\ROCEPHIN 2 GM in Sodium Chloride 0.9% 100 ML IVPB SCH ×2 (09:00→20:58)
[2022-04-01] MEDS: HumaLOG 300 UNITS/3 ML VIAL SC PRN (11:46)
[2022-04-01] MEDS: Atorvastatin Calcium 20 MG TAB PO SCH (20:16)
[2022-04-01] MEDS: Famotidine 20 MG TAB PO SCH (20:16)
[2022-04-02] MEDS: Ampicillin 2 GM in Sodium Chloride 0.9% 100 ML IVPB SCH ×4 (02:15→19:33)
[2022-04-02 06:20] LABS: Anion Gap 14 mmol/L (10-20); BUN (Urea Nitrogen) 21 mg/dL (8.4-25.7); Calc. Creatinine Clearance 44 mL/min (70-130); Calcium 8.7 mg/dL (7.8-10.44); Carbon Dioxide 21 mmol/L (23-31); Chloride 110 mmol/L (98-107); Estimated GFR 50; Glucose 95 mg/dL (83-110); Potassium 3.7 mmol/L (3.5-5.1); Sodium 141 mmol/L (136-145)
[2022-04-02] MEDS: Senokot S 8.6-50 MG TAB PO SCH (08:29)
[2022-04-02] MEDS: Multivitamin W/ Minerals 1 TAB PO SCH (08:29)
[2022-04-02] MEDS: Ferrous Sulfate 325 MG TAB PO SCH (08:29)
[2022-04-02] MEDS: Empagliflozin 10 MG TAB PO SCH (08:29)
[2022-04-02] MEDS: Apixaban 5 MG TAB PO SCH ×2 (08:29→19:33)
[2022-04-02] MEDS: Lantus 1000 UNITS/10 ML VIAL SC SCH (08:30)
[2022-04-02] MEDS: cefTRIAXone\\ROCEPHIN 2 GM in Sodium Chloride 0.9% 100 ML IVPB SCH ×2 (09:11→20:03)
[2022-04-02 19:01] LABS: #Basophils 0.1 thou/uL (0.0-0.2); #Eosinphils 0.1 thou/uL (0.0-0.7); #Monocytes 0.4 thou/uL (0.11-0.59); #Neutrophils 3.7 thou/uL (1.40-6.50); %Basophils 1.3 % (0.0-1.0); %Eosinophils 2.1 % (0.0-10.0); %Lymphocytes 18.3 % (21.0-51.0); %Monocytes 8.4 % (0.0-10.0); %Neutrophils 69.9 % (42.0-75.0); Mean Corpuscular Hemoglobin 30.1 pg (27.0-31.0); Mean Corpuscular Volume 94.1 fl (78.0-98.0); Mean Platelet Volume 6.2 fL (7.4-10.4); Platelet Count 154 10x3/uL (130-400); RBC Distribution Width 15.3 % (11.5-14.5); White Blood Cell (WBC) Count 5.3 10x3/uL (4.8-10.8)
[2022-04-02] MEDS: Atorvastatin Calcium 20 MG TAB PO SCH (19:33)
[2022-04-02] MEDS: Famotidine 20 MG TAB PO SCH (19:34)
[2022-04-02 20:08] VITALS: BP 118/61; TEMP 98.2
== END 2022-04-02 21:20 | disposition short-term general hospital (02) | DRG 289 ==
LOC: NAV ACUTE 19:29
PROVIDERS: ADMIT Family Medicine; ATTEND Family Medicine
DX: I33.0 Acute and subacute infective endocarditis (principal); R78.81 Bacteremia; I12.9 Hypertensive chronic kidney disease with stage 1 through stage 4 chronic kidney disease, or unspecified chronic kidney disease; E11.22 Type 2 diabetes mellitus with diabetic chronic kidney disease; N18.31 Chronic kidney disease, stage 3a; D50.9 Iron deficiency anemia, unspecified; B95.2 Enterococcus as the cause of diseases classified elsewhere; E78.5 Hyperlipidemia, unspecified; Z86.711 Personal history of pulmonary embolism; Z90.49 Acquired absence of other specified parts of digestive tract; Z98.890 Other specified postprocedural states; Z90.89 Acquired absence of other organs; Z90.6 Acquired absence of other parts of urinary tract; Z90.79 Acquired absence of other genital organ(s); Z85.46 Personal history of malignant neoplasm of prostate; Z85.51 Personal history of malignant neoplasm of bladder; Z83.3 Family history of diabetes mellitus; Z82.49 Family history of ischemic heart disease and other diseases of the circulatory system; Z88.0 Allergy status to penicillin; Z79.899 Other long term (current) drug therapy; Z20.822 Contact with and (suspected) exposure to COVID-19
CPT/HCPCS: 36415; 80048; 80053; 82565; 85014; 85018; 85025; 85049; 85652; 86140; 87811; J0290; J0696; J1815; J3490; J7050